=== PATIENT | female | born 1990 | race Caucasian/White ===

== ENCOUNTER 2023-04-23 10:57 | Outpatient (CLI) | payer OTHER, SELFPAY ==
--- NOTE | 2023-04-23 11:00 | CRLHL7_ITS ---
For Patients: As a result of the Century Cures Act, medical imaging exams and procedure reports are released immediately into your electronic medical record. You may view this report before your referring provider. If you have questions, please contact your health care provider. INDICATION: Evaluate anatomy. COMPARISON: none TECHNIQUE: Real time lopez scale imaging of the fetus was performed as well as color Doppler analysis of the umbilical vessels. FINDINGS: Sonographic imaging demonstrates a single living intrauterine gestation. Fetus demonstrates a regular cardiac rate of 137 beats per minute. Fetus has a vertex position. The placenta lies anteriorly without evidence of placenta previa. The edge of the placenta is located 6.2 cm from the internal cervical os. Amniotic fluid volume appears normal. Single deepest vertical pocket: 5.6 cm. The cervix is closed and measures 4.5 cm in length. The composite ultrasound gestational age is calculated at 20 weeks 5 days with an estimated sonographic due date of 09/05/2023. The estimated weight is 373 grams which lies at the 84th %. The following biometric measurements were obtained: Biparietal diameter: 4.9 cm/20 weeks 6 days 81st% Head circumference: 17.9 cm/20 weeks 2 days 58th% Abdominal circumference: 16.1 cm/21 weeks 1 day 81st% Femur length: 3.3 cm/20 weeks 2 days 52nd% The HC/AC ratio measures: 1.11 range (1.06-1.25) On anatomic survey, there is a normal appearance of the cerebral ventricles, cavum septi pellucidi, cisterna magna and cerebellum. The nose, lips, and facial profile appear normal. The cervical, thoracic and lumbar spine are well visualized and appear normal. There is a normal four-chamber heart view and the left and right ventricular outflow tracts appear normal. The diaphragm and stomach appear normal. The kidneys and bladder also appear normal. There is a normal three-vessel cord and there is an eccentric cord insertion site. The four extremities appear normal. IMPRESSION: Normal OB ultrasound exam with concordance of clinical and sonographic dating. No intrinsic abnormalities noted on anatomic survey. Dictated by Kailash Gonsales MD @ 04/23/2023 12:21:04 PM (Electronically Signed)
== END 2023-04-23 10:58 | disposition home or self-care (01) ==
PROVIDERS: Visit Provider Advanced Practice Midwife
DX: Z34.92 Encounter for supervision of normal pregnancy, unspecified, second trimester (principal); Z3A.20 20 weeks gestation of pregnancy
CPT/HCPCS: 76805

== ENCOUNTER 2023-06-18 10:35 | Outpatient (CLI) | payer OTHER, SELFPAY | END 2023-06-18 10:36 | disposition home or self-care (01) | LOC: NFLDREF 06-21 15:41 | PROVIDERS: Visit Provider Advanced Practice Midwife | DX: Z34.90 Encounter for supervision of normal pregnancy, unspecified, unspecified trimester (principal) | CPT/HCPCS: 86592 ==

== ENCOUNTER 2023-08-13 08:53 | Outpatient (CLI) | payer OTHER, SELFPAY ==
[2023-08-14 14:40] LABS: Strep B DNA Probe Negative (Negative); Strep B Susceptibility Needed? No
== END 2023-08-13 08:54 | disposition home or self-care (01) ==
PROVIDERS: Visit Provider Advanced Practice Midwife
DX: Z34.90 Encounter for supervision of normal pregnancy, unspecified, unspecified trimester (principal)
CPT/HCPCS: 87081; 87653

== ENCOUNTER 2023-09-07 11:33 | Inpatient (IN) | payer OTHER, SELFPAY ==
[2023-09-07] VITALS (14 sets, daily range): BP systolic 101–126; BP diastolic 48–69; PULSE 69–113; RESP 16–17; TEMP 36.7–37.4; O2SAT 96–100; BMI 32.4
[2023-09-07] MEDS: OXYTOCIN 10 UNIT/ML INJ IM (12:01)
[2023-09-07 12:34] LABS: Basophils Percent Auto 0.1 % (0.0-3.0); Hematocrit 40.6 % (33.0-51.0); Hemoglobin* 13.7 gm/dL (12.0-16.0); Immature Granulocytes Pct Auto 0.3 %; Mean Corpuscular HGB Conc 34 gm/dL (32-36); Mean Corpuscular Hemoglobin 31 pg (26-34); Mean Corpuscular Volume 91 fL (80-100); Monocytes Percent Auto 3.5 % (0.0-11.0); Neutrophils Percent Auto 91.1 % (42.0-72.0); Platelet Count* 217 K/uL (140-440); RDW Coefficient of Variation % 12.7 % (11.5-15.5); Red Blood Count 4.47 m/uL (4.00-5.20); White Blood Count* 20.83 K/uL (4.50-11.00)
[2023-09-07 12:37] LABS: Slide Review Reflex No
--- NOTE | 2023-09-07 13:00 | P.LDBA_ITS ---
Subjective History of Present Illness Date Seen: 09/07/23 Specific Issues/Plans Its a girl! Tx at 18 weeks from from [facility] in [place] H&P done by ENRRIQUE Webb on 08/20/2023 1. Rubella NON immune, needs vaccine PP 2. Hx of partial molar , needed 2 D & C's Taking oral progesterone and vaginal progesterone, managed by Fertility specialist in [place]: Stopped at 35 weeks Asked about dosing, records only say 100 mg vaginal progesterone daily. Stopped at 35 weeks. Send placenta to pathology 3. Hx of endometriosis COVID: declines, would not like to get this vaccine FLU: declines TDAP: declines 32wk Mental Health: completed Medical Records: Pap: 04/04/22, NIL (no HPV included, last HPV was 2019). Labs: 02/05/23: O+, ab screen neg, hgb 13.5, platelets 272, rubella NON immune, Hep B neg, HIV neg, Hep C neg. UDS neg. UC mixed lamont NOB done 02/05/23 at 9 weeks. LMP 12/04/22. Dating u/s 01/22/23: by LMP 7.0, by u/s 7.1 Comments: Sara is being admitted to Labor and Delivery for imminent delivery. She is a 32 year old G 3 P 1011 at?39.4 weeks gestation. Her full history and physical was dictated by Lauren James on 08/20/23. Please see this for details. ? She is coping well with labor pain/contractions. Her partner and narrow gauge operator are with her for support. She is planning an unmedicated . She states ctx started around 0100, becoming stronger and more regular around 0900. She has SROM, clear fluid while she was driving here. Arrived complete with a strong urge to push per RNs. OB - Problem Based A/P Additional Plan (1) Uterine contractions: Status: Acute Plan Assessment:?? at 39.4 weeks gestation?? GBS neg Patient is coping well with challenges of labor.?? Labor type: Spontaneous, delivery imminent complicated by: -Rubella non immune -hx of partial molar -hx of endometriosis ? Plan:?? * Admit to L & D? * IV access: not needed at this time * Monitoring:continuous * Candidate for analgesia of choice.? Planning nonpharmacologic methods for pain management * Anticipate progress to NVD Delivery/Labor/Induction Plan Plan: expectant management OB Exam Physical Exam Vital signs: Pulse BP Pulse Ox 91 122/61 100 09/07/23 12:57 09/07/23 12:57 09/07/23 11:43 Narrative: VSS, afebrile? General Appearance:? Calm, cooperative.? No acute distress.? Normal affect.? Psychiatric Exam: Alert and oriented, appropriate affect? HEENT: normocephalic, neck supple, full ROM? Respiratory:? Symmetrical chest wall movement.? Normal respiratory effort.? Abdomen: Gravid, non tender? Extremities:? normal and trace edema? Skin: warm, dry.??? Ctx:? Q min apart.? ? ? Strong? FHTs:? Baseline: 135.? Variability: min.?? Accels: none.??? Decels:? variable decels with ctx/pushing.? SVE: complete, crown noted w/ pushing? Membranes: ? SROM,? clear fluid Detailed Labor and Delivery Exam Patient Gravid: Yes
--- NOTE | 2023-09-07 13:01 | W.PM.OBVAGDE ---
OB Procedure Vag Delivery Mother Details Mother Details: The patient is a 32 year-old, 3, Para 2, admitted on 09/07/23 at 39.4 Days gestation. : 3 Para: 2 Weeks Gestation: 39.4 Admission Date: 09/07/23 Additional Details Amniotic Membrane Status: SROM Amniotic Membrane Rupture Date: 09/07/23 Amniotic Membrane Rupture Time: 11:24 Amniotic Membrane Fluid Description: Clear Analgesia/Anesthesia Type: None (spinal given after for D & C for retained membranes) Waterbirth: No Pitcoin: No (Given after for increased bleeding after placenta) Intrapartal Events: None Labor Onset: 09:00 Complete: 11:38 (assumed w/ pushing) Pushin:38 Heart: heart tones during second stage: variable decels w/ ctx/. Delivery Details Delivery Date: 09/07/23 Delivery Time: 11:48 Route of delivery: Infant Gender: Female Infant Viability: Alive; Heart Rate Present Position at Delivery: OA Delivery Details: Arrived to room and pt semifowlers, pushing in good control. [place] noted w/ pushing. As crown become larger, FHTs noted in the 60s. Pt encouraged to push w. next ctx, and gentle perineal massage done. delivered with the next ctx. ? Spontaneous vaginal?delivery?at 1148 of?a viable? female .??Delivered in vertex OA position.??Nuchal cord noted, but unable to reduce - still under the membranes and night. Somersaulted out and reduced after delivery. Shoulders delivered easily.? Cry noted with stimulation.?? placed on maternal abdomen.??Cord?was clamped and cut after a 5+ minute delay.??Nose and mouth were bulb suctioned.? Shoulder dystocia: no? Nuchal cord: yes? Meconium stained?fluid: no? Water : no? ? ? 8 at 1 minute and 9 at 5 minutes.? ? Sara noted increased pressure vaginally and the cord was noted to no longer be pulsing. Placenta delivered spontaneously and easily?at 1154 with a?3 vessel?cord.??Trailing membranes easily teased out. Pitocin recommended for slight increased bleeding noted after placenta delivered. During assessment for repair, large amount of membranes noted coming from the cervix. Teased out, but did not feel complete. Assessment of placenta revealed only 1-2 inches of membranes around the edge. Dr. Phelan and OR team called for D & C. Bleeding remained stable and The fundas was firm to palpation.?. Bimanual exam done while waiting for their arrival. Small amount of clots and shredded membranes also removed. ? Mother and infant were stable after?delivery.? ? Lacerations:? 2nd degree, repaired by Dr. Phelan in the OR. ? Blood loss: 250?mL.?prior to OR, 75 estimated in OR. Blood loss measurement type: QBL? EBL? ? Sponge,?lap?and needles counts are correct.? Mother and infant were stable after?delivery 1 Minute Interval Total Score: 8 5 Minute Interval Total Score: 9 Additional Details Shoulder Dystocia: No Procedure Done: Global Laceration: Perineal - 2nd Degree Sponge/Need Count Correct: Yes Cord Vessel Description: 3 Vessels and Nuchal Cord Event Summary Status: Mother and were stable after delivery. Disposition: floor
--- NOTE | 2023-09-07 13:04 | PM.OBCN1 ---
OB - CN: HPI Date of Consult Time Seen by Provider: 12:54 Date Seen: 09/07/23 Patient: [facility] Patient Consult date: 09/07/23 Requesting Physician: Elodia Dunbar CNM Primary Care Provider: Not a Local Provider Consult Narrative Reason for consult: retained placenta (suspected retained membranes) Narrative: The patient is a 32 year old G 3 now P 2011 that was admitted to the Center on 09/07/23 for labor. She proceeded to an unmedicated normal spontaneous vaginal delivery at 11:48 am. The placenta delivered at 11:54 am. The placenta was inspected and was found to be missing membranes. Elodia performed a bimanual exam and removed clots and jagged fragments of membranes, though she believes that more are still within the uterus. Bleeding had been a slow consistent trickle. QBL for the delivery was 250 mL. 1. Rubella NON immune, needs vaccine PP 2. Hx of partial molar , needed 2 D & C's Taking oral progesterone and vaginal progesterone, managed by Fertility specialist in [place]: Stopped at 35 weeks Asked about dosing, records only say 100 mg vaginal progesterone daily. Stopped at 35 weeks. Send placenta to pathology 3. Hx of endometriosis COVID: declines, would not like to get this vaccine FLU: declines TDAP: declines 32wk Mental Health: completed Medical Records: Pap: 04/04/22, NIL (no HPV included, last HPV was 2020). Labs: 02/05/23: O+, ab screen neg, hgb 13.5, platelets 272, rubella NON immune, Hep B neg, HIV neg, Hep C neg. UDS neg. UC mixed lamont NOB done 02/05/23 at 9 weeks. LMP 12/04/22. Dating u/s 01/22/23: by LMP 7.0, by u/s 7.1 History History 3 Elective abortions 0 Para 2 Spontaneous abortions 1 Hx # Term Pregnancies 1 Ectopic pregnancies Hx # Pregnancies 0 Multiple births Number of Living Children 1 Past Pregnancies Del. 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 ? Education: bachelors? ? 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 ? Partner: Nagi? ? Lives with: Nagi, son? ? Pets: denies? ? Abuse: Denies past. Safe at home with current partner ? ? Special Diet: Denies? ? Ok with a blood transfusion: yes? ? Culture or jew beliefs: Cheondoism ? RISK FACTORS? ? Exercise Times/wk: walking 3 times a week, barre once a week. ? ? Depression/Anxiety: denies? ? Previous Treatments NA Therapy NA Seat Belt Use: Routinely ? Smoking: Denies past/present? ? Alcohol/day: Denies while ? ? Caffeine: 1 pop a few times a week? ? Drug Use: Denies past/present? ? What is your current living situation?: I presently have a place to live Problems where you live: no known problems In the past 12 months, utilities in danger of being shut off: no In past 12 months, lack of transportation kept you from medical appts, meetings, work, or getting things needed for daily living: no In the past 12 mos, have been you worried that your food would run out before you had money to buy more?: never true In the past 12 mos, the food you bought just didn't last and you didn't have money to buy more?: never true How often does anyone, including family, friends and others, physically hurt you: never How often does anyone, including family, friends and others, insult or talk down to you: never How often does anyone, including family, friends and others, threaten you with harm: never How often does anyone, including family, friends and others, scream or curse at you: never Little interest or pleasure in doing things: not at all Feeling down, depressed, or hopeless: not at all Meds Home Medications and Allergies Home Medications Medication Instructions Recorded Confirmed Type docosahexaenoic acid 200 mg mg PO 04/23/23 09/03/23 History capsule ( DHA) Saccharomyces boulardii 250 mg 250 mg PO BID 05/21/23 09/03/23 History capsule (Daily Probiotic (S. boulardii)) cholecalciferol (vitamin D3) 25 25 mcg PO QDAY 07/30/23 09/03/23 History mcg (1,000 unit) capsule magnesium 250 mg tablet 250 mg PO QDAY 07/30/23 09/03/23 History Allergies Allergy/AdvReac Type Severity Reaction Status Date / Time Penicillins Allergy Mild Rash Verified 09/03/23 08:38 OB - H&P: Exam Physical Exam: Vital signs: Pulse BP Pulse Ox 91 122/61 100 09/07/23 12:57 09/07/23 12:57 09/07/23 11:43 Constitutional: Constitutional: no acute distress and cooperative Routine HEENT Exam: Head: Present atraumatic Routine Exam: Comments: Laceration on the perineum involving right labia majora. Slow trickle noted. Fundus firm. Detailed Labor and Delivery Exam: Patient Gravid: No Routine Extremities Exam: Extremities: Present normal inspection OB - Results Labs Labs: Short CBC 09/07/23 Range/Units 12:12 WBC 20.83 H (4.50-11.00) K/uL Hgb 13.7 (12.0-16.0) gm/dL Hct 40.6 (33.0-51.0) % Plt Count 217 (140-440) K/uL OB - CN: A/P Assessment and Plan (1) Retained uterine membrane without hemorrhage: Status: Acute Plan Would recommend moving to operating room for examination under anesthesia, uterine curettage (suction or gentle sharp as indicated) and labial/perineal repair. Operating room staff and anesthesia notified, informed consent for the procedures obtained.
[2023-09-07] MEDS: ACETAMINOPHEN 500 MG TABLET 1000 MG PO ×2 (13:10→23:50)
[2023-09-07] MEDS: CEFAZOLIN 2 GM INJ IVP (13:15)
[2023-09-07] MEDS: KETOROLAC 30 MG/ML inj IVP (13:38)
--- NOTE | 2023-09-07 13:43 | P.ANES_ITS ---
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
--- NOTE | 2023-09-07 14:01 | PM.PROC ---
Procedure Note Date Seen: 09/07/23 Date of procedure: 09/07/23 Will [facility] bill your pro fee for this procedure?: Yes Pre-op diagnosis: 1. Status post vaginal delivery, 2. Retained amniotic membranes Post-op diagnosis: same (Plus vaginal inclusion cyst) Procedure: 1. Examination under anesthesia 2. Uterine curettage 3. Repair of second-degree perineal/labial laceration 4. Removal of vaginal inclusion cyst Procedure Description: After obtaining informed consent, the patient was taken to the operating room where spinal anesthesia was obtained without difficulty and she received monitored anesthesia care. She was prepared and draped in the normal, sterile fashion in the dorsal lithotomy position. 2 g of IV Ancef was administered intravenously. An examination was performed under anesthesia which demonstrated an enlarged uterus. Digitally, I was able to explore the uterine cavity and felt membranes. I was able to tease some of the membranes out using a combination of my fingers and a ring forceps. An open-sided bivalve speculum was placed into the vagina and the cervix visualized. The anterior lip of the cervix was grasped with a ring forceps for traction. A 14 mm rigid, curved suction cannula was advanced through the cervical os into the uterine cavity. Gentle suction was applied, and the uterine lining gently curetted. A small amount of products of conception/membranes and clot were removed. The suction cannula was removed. The uterine lining was gently explored using a sharp Banjo curette, and a gritty feel was felt throughout. The ring forceps and speculum were removed. Examination of the vagina demonstrated a 0.5 cm benign-appearing inclusion cyst at the apex of the tear. The cyst was grasped with a ring forceps and gently bluntly dissected from the vaginal tissues and passed from the field. The perineal laceration was repaired in normal sterile, layered fashion using a 3-[address] suture [address] a [address]-1 needle. All instruments were then removed. The patient tolerated the procedure well. Sponge, lap, and needle counts were reported as correct x2. The patient was taken to the recovery room awake and in stable condition. She received 30 mg of IV Toradol at the conclusion of the procedure. Anesthesia: spinal (with light MAC) Surgeon: Norma Phelan MD Estimated blood loss (mL): 75 Pathology: specimen obtained, sent to pathology (1. Retained membranes, 2. Vaginal inclusion cyst ) Condition: stable Disposition: floor
[2023-09-08] MEDS: IBUPROFEN 600 MG TABLET PO ×2 (03:09→16:23)
[2023-09-08 03:10] VITALS: BP 96/53; PULSE 60; RESP 18; TEMP 36.7; O2SAT 97
[2023-09-08 06:54] LABS: Hemoglobin* 11.7 gm/dL (12.0-16.0)
[2023-09-08 09:00] VITALS: BP 116/77; PULSE 85; RESP 16; TEMP 36.6; O2SAT 96
--- NOTE | 2023-09-08 13:01 | PM.OBPNVD1 ---
OB - PN:Subj Subjective Date Seen: 09/08/23 Patient comments OB post-: no complaints, pain well controlled, tolerating diet and flatus present [place] status: and doing well [place] feeding status: exclusively Narrative: The patient feels well.? The pain is well controlled with current medications.? She has no new complaints.? Urinary output is adequate and she is voiding without difficulty.? Has a good appetite, is tolerating a general diet, is passing flatus, and has not had a bowel movement.? Has scant amount of rubra lochia and denies clots.? She is ambulating well. A few hours after initially rounding on Sara the RN called with reports of the patient passing tissue. She denies any increases in bleeding before or since that time. On inspection the tissue passed did look similar to placental membranes. I did review warning signs of retained POC including bleeding precautions and infection. She denies other concerns at this time.?She did initially desire discharge today but after shared decision making it was decided that she stay until tomorrow for bleeding observation, help, and to observe her baby for jaundice since her last child required phototherapy. OB - PN: Obj Exam Physical Exam: Vital signs: Temp Pulse Resp BP Pulse Ox O2 Del Method 98 F 85 16 116/77 96 Room Air 09/08/23 09:00 09/08/23 09:00 09/08/23 09:00 09/08/23 09:00 09/08/23 09:00 09/08/23 09:00 Narrative: GENERAL APPEARANCE:? normal affect, alert, no distress? MOOD:? appropriate? CHEST:? clear to auscultation and percussion? HEART:? regular rate and rhythm? ABDOMEN:? soft, non-tender the uterine fundus is U/2 and is appropriate for the stage of recovery.? PERINEUM:? mild edema of the perineum, there is a 2nd that is healing well.? EXTREMITIES:? normal and no edema? Urinary Catheter Management: Straight: Cath placed during this visit: yes Urethral indwelling: No Insertion date: 09/07/23 Insertion time: 13:28 OB - PN: Obj Data Labs Labs: Laboratory Results - last 24 hr 09/07/23 09/08/23 12:12 06:37 Hgb 11.7 L Blood Type O Positive Antibody Screen NEGATIVE OB - PN: A/P Delivery Assessment and Plan (1) Retained uterine membrane without hemorrhage: Status: Acute (2) Lactating mother: Status: Acute (3) care following vaginal delivery: Status: Acute Plan day: 1 Plan: routine care Comments: Anticipate discharge tomorrow.
[2023-09-08 15:59] VITALS: BP 101/67; PULSE 73; RESP 16; TEMP 36.9; O2SAT 97
[2023-09-08] MEDS: ACETAMINOPHEN 500 MG TABLET 1000 MG PO (18:15)
[2023-09-09 01:03] VITALS: BP 123/77; PULSE 73; RESP 16; TEMP 36.7; O2SAT 99
[2023-09-09 08:03] VITALS: BP 105/60; PULSE 80; RESP 16; TEMP 36.4; O2SAT 97
[2023-09-09] MEDS: IBUPROFEN 600 MG TABLET PO (11:53)
--- NOTE | 2023-09-09 12:24 | P.DS_ITS ---
DS: Providers Provider Time Seen by Provider: 12:24 Date Seen: 09/09/23 Date of admission: 09/07/23 11:33 Primary care physician: Not a Local Provider Admitting Clinician: Elodia Dunbar CNM Attending Physician on discharge: Elodia Dunbar CNM Date of Discharge: 09/09/23 DS: Diagnosis Discharge Diagnosis (1) care following vaginal delivery: Status: Acute (2) Lactating mother: Status: Acute (3) Retained uterine membrane without hemorrhage: Status: Acute (4) S/P dilation and curettage: Status: Acute Exam Narrative: Exam Narrative: VSS, afebrile GENERAL APPEARANCE: ?normal affect, alert, no distress MOOD: ?appropriate HEENT: normocephalic, neck supple, full ROM CHEST: ?Symmetrical chest wall movement. ?Normal respiratory effort. ?Clear to auscultation HEART: ?regular rate and rhythm ABDOMEN: ?soft, non-tender. Uterine fundus is firm, 2 below Umbilicus, Midline and is appropriate for the stage of recovery. ?Bowel sounds present. PERINEUM: ?mild edema of the perineum, there is a 2nd degree laceration that is healing well. EXTREMITIES: ?normal and no edema Const: Vital Signs, click to edit/add: Vital Signs - 24 hr 09/08/23 15:59 09/09/23 01:03 09/09/23 08:03 Temperature 98.5 F 98.0 F 97.6 F Pulse Rate [Pulse Oximeter] 73 73 80 Respiratory Rate 16 16 16 Blood Pressure [Ri ght Arm] 101/67 123/77 105/60 Pulse Oximetry 97 99 97 Oxygen Delivery Me thod Room Air Room Air Room Air Documenting provider has reviewed patient's vital signs: yes OB - DS: Summary Hospital Course Hospital Course: Sara is a 32 y.o. G 3 P 2 who was admitted to L & D for labor. ?She had an NVD complicated by retained membranes w/o hemorrhage. D & C done. The patient feels well. ?The pain is well controlled with current medications. ?She has no new complaints. ?She is breast feeding and reports things are going well.? the patient has done well.? Vitals have been stable.? She has remained afebrile.? Has a good appetite, is tolerating a general diet. ?She is voiding without difficulty.? She is passing gas and has not had a bowel movement.? She is ambulating and denies any dizziness.? Has Small amount of rubra lochia. She is planning NFP for prevention. Problems: none plan: Discharge home with baby. Follow up in 2 weeks and 6 weeks. , may follow up with if needed Peripartum Data Infant delivery method: Vaginal Laceration description: Perineal - 2nd Degree Procedures: Procedures Operation Date: 09/07/23 13:10 Actual Procedure Side Surgeon p Suction Dilatation & Curettage, Perineal Tear Repair, Exam Under Anesthesia, Removal of Vaginal Inclusion Cyst Norma Phelan MD complications: retained placenta Gender: Female Discharge Plan: Home Status at Discharge Functional status at discharge: independent ambulation Overall status at discharge: patient is progressing back to baseline Time Spent with Patient Time attestation: Total time spent providing and/or coordinating discharge services: Time spent: Less than 30 minutes Discharge Plan Discharge Disposition: Home, Self-Care Date of Admission: 09/07/23 11:33 Attending Provider on Discharge: Elodia Dunbar Primary Care Provider: Provider,Not a Local Condition: Stable Anticipated Discharge Date/Time: 09/09/23 13:00 Discharge Medications: New ibuprofen 600 mg Tablet 600 mg PO Q6H PRNQty: 60 0RF Continued Saccharomyces boulardii [Daily Probiotic (S. boulardii)] 250 mg capsule 250 mg PO BID DHA 200 mg capsule 200 mg PO DAILY PRN magnesium 250 mg tablet 250 mg PO QDAY cholecalciferol (vitamin D3) 25 mcg (1,000 unit) capsule 25 mcg PO QDAY Discharge Orders: Discharge Order (Routine); Ordered 09/09/23 Ordered By: Elodia Dunbar Patient Education: Deep Sedation (DC), Dilation and Curettage (DC), OB Over the Counter Medication Information, OB Vagin al/Breast Feeding Additional Instructions: Follow up in 2 weeks and 6 weeks. Nothing in the vagina (no tampons, intercourse, etc) for 6 weeks Call if bleeding becomes heavy or you have signs of an infection, including but not limited to bad odor, tender abdomen, fever, chills. Activity Level: Activity as Tolerated Discharge Diet: Regular Follow Up Appointments: Provider,Not a Local [Primary Care Provider] - [facility] Instructions
== END 2023-09-09 12:58 | disposition home or self-care (01) | DRG 798 ==
PROVIDERS: Obstetrics & Gynecology; Admitting Provider Advanced Practice Midwife; Visit Provider Advanced Practice Midwife
DX: O73.1 Retained portions of placenta and membranes, without hemorrhage (principal); Z37.0 Single live birth; Z3A.39 39 weeks gestation of pregnancy; O70.1 Second degree perineal laceration during delivery; O99.892 Other specified diseases and conditions complicating childbirth; N90.7 Vulvar cyst; Z87.42 Personal history of other diseases of the female genital tract
CPT/HCPCS: 01965; 36415; 85018; 85025; 86850; 86900; 86901; 88304; 88305; 88307; 99140; A9270; J0690; J1100; J1885; J2250; J2405; J2590

== ENCOUNTER 2023-10-29 13:52 | Outpatient (CLI) | payer OTHER, SELFPAY ==
--- OUTSIDE RECORDS SUMMARY | 2023-10-29 13:58 | XMS_ITS | Encounter Summary ---
Author Name Unknown Organization [facility] Address [address] [place], [place] [address] [place] [address] Care Team Providers Care Complaint Clerk Name Role Phone Needs Pcp, Assignment Primary Care Provider [phone] Reason for Visit * Procedure/Equipment (Routine) - Incomplete Specialty Diagnoses / Procedures Referred By Contjerilyn t Referred To Contact Diagnoses History of molar Procedures US OB <14 Weeks W EV Single Kailash Porras MD [address] [facility] [place] [address] [place] [address] Referral ID Status Reason Start Date Expiration Date V isits Requested Visits Authorized [id number] Incomplete 01/21/2023 04/21/2024 1 1 Encounter Details Date Type Department Care Team Description 01/22/2023 12:30 PM CDT Ancillary Procedure [place] [address] [facility] [place], [place] [address] Kailash Porras MD [facility]5 [facility] [place] [address] [place], [place] [address] History of molar Social History Tobacco Use Types Packs/Day Years Used Date Smoking Tobacco: Never Smokeless Tobacco: Never Alcohol Use Standard Drinks/Week Comments Not Currently 0 (1 standard drink = 0.6 oz pur e alcohol) Comments Yes Sex and Gender Information Value Date Recorded Sex Assigned at Not on file Gender Identity Not on file Sexual Orientation Not on file documented as of this encounter Plan of Treatment Not on file documented as of this encounter Procedures Procedure Name Priority Date/Time Associated Diagnosis Comments US OB <14 WEEKS W EV SINGLE Routine 01/22/2023 12:57 PM CDT History of molar documented in this encounter Results * US OB <14 Weeks W EV Single (01/22/2023 12:57 PM CDT) Anatomical Region Laterality Modality Pelvis Ultrasound 01/22/2023 12:2 4 PM CDT Impressions 01/22/2023 2:19 PM CDT COMPARISON: None TECHNIQUE: ??Transabdominal and transvaginal imaging was performed. ?? FINDINGS: Gestational sac: Unremarkable. There is a 1.5 x 0.8 x 0.4 cm hypoechoic nonvascular fluid collection adjacent to the gestational sac, likely a small subchorionic hemorrhage/implantation bleed. [place]-rump length measures 1.0 cm, corresponding to 7w1d gestational age. ?? RACHEL 09/09/2023. ?? Embryonic/ cardiac activity is identified with heart rate 163 bpm. ?? Right Ovary: Measures 3.8 x 2.4 x 2.2 cm and appears unremarkable. Left Ovary: Measures 4.6 x 2.8 x 2.5 cm and contains a 1.9 cm relatively echogenic lesion, likely a corpus luteum or possibly a dermoid. No suspicious adnexal masses. Free Fluid: Trace simple-appearing free fluid. GA by LMP:: ??7w0d GA by Prior US: ??N/A GA by today's US: ??7w1d RACHEL by today's US: 09/09/2023 IMPRESSION: 1. Single live intrauterine with an estimated gestational age of 7 weeks 1 day. A very small subchorionic hemorrhage/implantation bleed. 2. Left ovarian 1.9 cm relatively echogenic lesion, likely a corpus luteum or possibly a dermoid. Attention at follow-up. Narrative Procedure Note Nat Camp MD - 01/22/2023 IMPRESSION COMPARISON: None TECHNIQUE: Transabdominal and transvaginal imaging was performed. FINDINGS: Gestational sac: Unremarkable. There is a 1.5 x 0.8 x 0.4 cm hypoechoicnonvascular fluid collection adjacent to the gestational sac, likely asmall subchorionic hemorrhage/implantation bleed. [place]-rump length measures 1.0 cm, corresponding to 7w1d gestational age. RACHEL 09/09/2023. Embryonic/ cardiac activity is identified with heart rate 163 bpm. Right Ovary: Measures 3.8 x 2.4 x 2.2 cm and appears unremarkable. Left Ovary: Measures 4.6 x 2.8 x 2.5 cm and contains a 1.9 cm relativelyechogenic lesion, likely a corpus luteum or possibly a dermoid. No suspicious adnexal masses. Free Fluid: Trace simple-appearing free fluid. GA by LMP:: 7w0d GA by Prior US: N/A GA by today's US: 7w1d RACHEL by today's US: 09/09/2023 IMPRESSION: 1. Single live intrauterine with an estimated gestational age of7 weeks 1 day. A very small subchorionic hemorrhage/implantation bleed. 2. Left ovarian 1.9 cm relatively echogenic lesion, likely a corpus luteumor possibly a dermoid. Attention at follow-up. Kailash Porras MD [facility] documented in this encounter Visit Diagnoses Diagnosis History of molar documented in this encounter Care Teams Complaint Clerk Relationship Specialty Start Date End Date Needs Pcp, [place] [address] PCP - General 01/07/23 documented as of this encounter
--- OUTSIDE RECORDS SUMMARY | 2023-10-29 13:58 | XMS_ITS | Encounter Summary ---
Author Name Unknown Organization [facility] Address [address] [place] [address] Care Team Providers Care Program Attendant Name Role Phone Needs Pcp, Assignment Primary Care Provider [phone] Reason for Visit * Reason Comments Routine Visit Encounter Details Date Type Department Care Team Description 03/26/2023 11:10 AM CDT Routine [place] [id number] Obstetrics/Gynecolo 1515 [facility]. [place], [place] [id number] Kailash Porras MD 1515 [facility] [place] [address] [place], [place] [id number] Routine Visit Social History Tobacco Use Types Packs/Day Years Used Date Smoking Tobacco: Never Smokeless Tobacco: Never Alcohol Use Standard Drinks/Week Comments Not Currently 0 (1 standard drink = 0.6 oz pur e alcohol) Depression Answer Date Recor ded Last EPDS Total Score 1 02/05/2023 Last EPDS Self Harm Result 0-->never 02/05 Comments Yes Sex and Gender Information Value Date Recorded Sex Assigned at Not on file Gender Identity Not on file Sexual Orientation Not on file documented as of this encounter Last Filed Vital Signs Vital Sign Reading Time Taken Comments Blood Pressure 114/62 03/26/2023 11:14 AM CDT Pulse - - Temperature - - Respiratory Rate - - Oxygen Saturation - - Inhaled Oxygen Concentration - - Weight 76.2 kg (168 lb) 03/26/2023 11:14 AM CDT Height - - Body Mass Index 28.84 02/05/2023 1:06 PM CDT documented in this encounter Patient Instructions * Patient Instructions* Kailash Porras MD - 03/26/2023 11:10 AM CDT Images from the original note were not included. Thank you for choosing us for your care. We recommend you review the following information in Your Guide to : Genetic Testing Testing Possible Complications Schedule your ultrasound now if you have not already scheduled it. Your ultrasound should be completed at 20 weeks of . Drinking any amount of alcohol during is not safe. Watch this short video by [employer] [place]: Proof: Some Think Drinking During is OK. It???s Not. - Nahed video Marijuana use is never recommended while or . Learn why here: https://Photetica/62716.pdf is a time of transition. If you feel overwhelmed, anxious or depressed, see the followingresources: Emotional Distress During and After : https://Photetica/15632.pdf Resources & Support for New & Expecting Parents: https://Photetica/57432.pdf The 3 books provided throughout are also available digitally. Here are links to each book: Your Guide to : https://user-TVplus.So1.Gauzy/KsbdrcHaepcaiq-Luxk-Glrmy-xa-b-Efmjakr- Preparing for Childbirth: https://user-TVplus.So1.bz/LmmokrUfsehkif-Tij-Gjqg-of-Motherhood Taking Care of You and Your : https://user-TVplus.So1.bz/FwmolsTkjwdvud-F-Xuk-Beginning [place] for our free carolyn called ???myHealthyPregnancy?? powered by [employer]. The carolyn offers many quick articles and videos on , labor, , , and newborncare. Find instructions here: Or click on this link: myHealthyPregnancy tracker carolyn [facility] documented in this encounter Progress Notes * Kailash Porras MD - 03/26/2023 11:10 AM CDT Visit 16w0d No complaints. Quad screen declined. Schedule ultrasound. documented in this encounter Plan of Treatment Not on file documented as of this encounter Visit Diagnoses Diagnosis Encounter for supervision of other normal in second trimester- Primary documented in this encounter Care Teams Program Attendant Relationship Specialty Start Date End Date Needs Pcp, [place] [address] PCP - General 01/07/23 documented as of this encounter
--- OUTSIDE RECORDS SUMMARY | 2023-10-29 13:58 | XMS_ITS | Encounter Summary ---
Author Name Unknown Organization [facility] Address [address] [place] [address] Care Team Providers Care Transport Truck Driver Name Role Phone Unavailable Primary Care Provider Unavailabl e Encounter Details Date Type Department Care Team (Latest Contact Info) Description 02/05/2023 Travel Social History Tobacco Use Types Packs/Day Years Used Date Smoking Tobacco: Never Assessed Estimated Date of Delivery Comme nts Yes 09/10/2023 Sex and Gender Information Value Date Recorded Sex Assigned at Not on file Gender Identity Not on file Sexual Orientation Not on file COVID-19 Exposure Response Date Recorded In the last 10 days, have yo u been in contact with someone who was confirmed or suspected to have Coronavirus/COVID-19? No / Unsure 02/05/2023 11:09 PM CDT documented as of this encounter Plan of Treatment Not on file documented as of this encounter Visit Diagnoses Not on filedocumented in this encounter Additional Health Concerns Infection Onset Date Last Indicated Resolved Time Rule Out COVID-19 02/05/2023 02/05/2023 02/06/2023 12:33 AM CDT documented as of this encounter
--- OUTSIDE RECORDS SUMMARY | 2023-10-29 13:58 | XMS_ITS | Encounter Summary ---
Author Name Unknown Organization [facility] Address [address] [place] [address] Care Team Providers Care Roll Grinder Operator Name Role Phone Needs Pcp, Assignment Primary Care Provider [phone] Reason for Visit * Reason Comments Follow-up Ultrasound Encounter Details Date Type Department Care Team Description 01/22/2023 1:30 PM CDT Office Visit [place] [id number] Obstetrics/Gynecolog y 1515 [facility]. [place], [place] [phone] Kailash Porras MD 1515 [facility] [place] [address] [place], [place] [phone] History of molar (Primary Dx) Social History Tobacco Use Types Packs/Day Years [...] Sign Reading Time Taken Comments Blood Pressure 123/64 01/22/2023 1:09 PM CDT Pulse - - Temperature - - Respiratory Rate - - Oxygen Saturation - - Inhaled Oxygen Concentration - - Weight 70.8 kg (156 lb) 01/22/2023 1:09 PM CDT Height - - Body Mass Index - - documented in this encounter Progress Notes * Kailash Porras MD - 01/22/2023 1:30 PM CDT SUBJECTIVE: 32 y.o. , Patient's last menstrual period was 12/04/2022., here for follow-up ofearly . Please see my note from 01/07/2023 for details of her previous evaluation. She hasno new complaints at this time. An ultrasound was done today. Outpatient Medications Marked as Taking for the 01/22/23 encounter (Office Visit) with Kailash Porras MD Medication Sig Acetylcysteine (NAC OR) MAGNESIUM OR MV-Min-Fe Fum-FA-DHA ( 1 OR) progesterone (PROMETRIUM) 100 MG capsule Insert vaginally. Pyridoxine HCl (B-6 OR) VITAMIN D OR Allergies Allergen Reactions Penicillins Rash OBJECTIVE: Filed Vitals: 01/22/23 1309 BP: 123/64 Weight: 156 lb (70.8 kg) OB ultrasound images and the technologist work sheet from today's ultrasound were reviewed. The final report is not yet available. A single, viable intrauterine was noted, measuring 7 weeks1 day EGA, consistent with menstrual dating. A small possible subchorionic hemorrhage was noted. ASSESSMENT: with history of a molar . The patient does have a normal, viable on ultrasound today. PLAN: She will return in 2 to 3 weeks for a follow-up ultrasound and initial visit. She will notify me sooner if she has any questions or concerns. documented in this encounter Plan of Treatment Not on file documented as of this encounter Visit Diagnoses Diagnosis History of molar - Primary documented in this encounter Care Teams Roll Grinder Operator Relationship Specialty Start Date End Date Needs Pcp, [place] [address] PCP - General 01/07/23 documented as of this encounter
--- OUTSIDE RECORDS SUMMARY | 2023-10-29 13:58 | XMS_ITS | Clinical Summary ---
Author Name Unknown Organization [facility] Address [address], [place] [address] Care Team Providers Care Heading Maker Name Role Phone Needs Pcp, Assignment Primary Care Provider [phone] Source Comments You are receiving this document as you are listed as the primary care provider,follow-up provider, or the patient has been referred to you for consultation.This is in compliance with the Medicare and[facility] EHR Incentive Program,which states Providers who transition their patient to another setting of careor provider of care or refers their patient to another provider of care shouldprovide summary care record for each transition of care or referral. [facility] Allergies Active Allergy Reactions Criticality Noted Date Comments Penicillins Rash 01/07/2023 Medications Medication Sig Dispensed Refills Start Date End Date Status MV-Min-Fe Fum-FA-DHA ( 1 OR) 0 Active Probiotic Product (SUPER PROBIOTIC OR) 0 Active Active Problems No known active problems Resolved Problems Problem Noted Date Diagnosed Date Resolved Date Encounter for supervision of normal 02/06/20 23 07/09/2023 Family History Medical History Relation Name Comments Cancer Father No Known Problems Mother No Known Problems Brother No Known Problems Maternal Grandfather No Known Problems Maternal Grandmother Cancer Paternal Grandfather Cancer Paternal Grandmother Relation Name Status Comments Father Alive Mother Alive Brother Alive Maternal Grandfather Maternal Grandmother Alive Paternal Grandfather Paternal Grandmother Social History Tobacco Use Types Packs/Day Years Used Date Smoking Tobacco: Never Smokeless Tobacco: Never Tobacco Cessation:Counseling Given: Not Answered Alcohol Use Standard Drinks/Week Comments Not Currently 0 (1 standard drink = 0.6 oz pur e alcohol) Depression Answer Date Recor ded Last EPDS Total Score 1 02/05/2023 Last EPDS Self Harm Result 0-->never 02/05 Sex and Gender Information Value Date Recorded Sex Assigned at Not on file Gender Identity Not on file Sexual Orientation Not on file Last Filed Vital Signs Vital Sign Reading Time Taken Comments Blood Pressure 114/62 03/26/2023 11:14 AM CDT Pulse 90 02/26/2023 11:25 AM CDT Temperature - - Respiratory Rate - - Oxygen Saturation - - Inhaled Oxygen Concentration - - Weight 76.2 kg (168 lb) 03/26/2023 11:14 AM CDT Height 162.6 cm (5' 4) 02/05/2023 1:06 PM CDT Body Mass Index 28.84 02/05/2023 1:06 PM CDT Plan of Treatment Health Maintenance Due Date Last Done Comments Cervical Cancer Screening Due 1989 HepB (1) 1989 COVID-19 Vaccine (#1) 06/12/1990 Adult Preventive Visit 12/11/2007 DTaP/Tdap/Td (1 - Tdap) 2008 Influenza (#1) 2023 Zoster/Shingles (1 of 2) 12/11/2039 HIV Screening (Preventive Services) Completed 02/05/2023 Hep C Screening (Preventive Services) Completed 02/05/2023 HPV Vaccine Aged Out No longer eligi ble based on patient's age to complete this topic HepA Aged Out No longer eligi ble based on patient's age to complete this topic Hib Aged Out No longer eligi ble based on patient's age to complete this topic IPV (Polio) Aged Out No longer eligi ble based on patient's age to complete this topic MCV4 Aged Out No longer eligi ble based on patient's age to complete this topic Pneumococcal Aged Out No longer eligi ble based on patient's age to complete this topic Care Teams Heading Maker Relationship Specialty Start Date End Date Needs Pcp, [place] [address] PCP - General 01/07/23
--- OUTSIDE RECORDS SUMMARY | 2023-10-29 13:58 | XMS_ITS | Encounter Summary ---
Author Name Unknown Organization [facility] Address [address] [place] [address] Care Team Providers Care Log Deckman Name Role Phone Needs Pcp, Assignment Primary Care Provider [phone] Reason for Visit * Reason Comments INITIAL VISIT Encounter Details Date Type Department Care Team Description 02/05/2023 1:20 PM CDT Initial [facility] 1515 Obstetrics/Gynecolo gy 1515 [facility]. [place], [place] [id number] Kailash Porras MD 1515 [facility] [address] [place], [place] [phone] INITIAL VISIT Social History Tobacco Use Types Packs/Day Years [...] Sign Reading Time Taken Comments Blood Pressure 113/62 02/05/2023 1:06 PM CDT Pulse 69 02/05/2023 1:06 PM CDT Temperature - - Respiratory Rate - - Oxygen Saturation - - Inhaled Oxygen Concentration - - Weight 72.6 kg (160 lb) 02/05/2023 1:06 PM CDT Height 162.6 cm (5' 4) 02/05/2023 1:06 PM CDT Body Mass Index 27.46 02/05/2023 1:06 PM CDT documented in this encounter Patient Instructions * Patient Instructions* Kailash Porras MD - 02/05/2023 1:20 PM CDT Thank you for choosing us for your care. We recommend you review the following information in the book you received, ???Your Guide to ?? as well as the additional materials listed below: and Genetic Testing How Your Body Changes Making Good Choices Six Steps to a Healthy How Babies Grow and Change Additional Handouts bookmark Permission to Verbally Discuss Protected Health Information with Family & Friends Choose Your [employer] brochure [facility] brochure Healthy Beginnings Health Care Products List Patient Guide to Insurance During Your Guide to - https://user[employer].People to Remember.bz/RjsoxcZrcffvzm-Vegs-Zyuzw-yx-m-Yejgizr- Preparing for Childbirth - https://user[employer].People to Remember.bz/SulqtzFsctpucq-Hjy-Zjbo-of-Motherhood Taking Care of You and Your - https://user[employer].People to Remember.bz/LdflynXaqdnned-E-Pry-Beginning documented in this encounter Progress Notes * Kailash Porras MD - 02/05/2023 1:20 PM CDT CLINIC PROGRESS NOTE: FIRST OB VISIT SUBJECTIVE: Patient is a 32 y.o. at 9w0d EGA, based on Patient's last menstrual period was 12/04/2022..She is here today for her initial visit. She has no risk factors for this . She has had nausea, breast tenderness, and fatigue. OB History Para Term AB Living 3 1 1 0 1 1 SAB IAB Ectopic Multiple Live Births 0 0 0 0 1 # Outcome Date GA Lbr Demarcus/2nd Weight Sex Delivery Anes PTL Lv 3 Current 2 Term 12/07/21 M Vag-Spont ALEKSEY 1 Molar Comments: partial molar Past Medical History: Diagnosis Date Endometriosis Female infertility Migraines Partial hydatidiform mole Past Surgical History: Procedure Laterality Date DILATION AND CURETTAGE x2 LAPAROSCOPY OPERATIVE HYSTEROSCOPY PELVIC LAPAROSCOPY treatment of endometriosis Family History Problem Relation Age of Onset No Known Problems Mother Cancer Father No Known Problems Brother No Known Problems Maternal Grandmother No Known Problems Maternal Grandfather Cancer Paternal Grandmother Cancer Paternal Grandfather Outpatient Medications Marked as Taking for the 02/05/23 encounter (Initial ) with Kailash Porras MD Medication Sig Acetylcysteine (NAC OR) MAGNESIUM OR MV-Min-Fe Fum-FA-DHA ( 1 OR) progesterone (PROMETRIUM) 100 MG capsule Insert vaginally. 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 OBJECTIVE: Filed Vitals: 02/05/23 1306 BP: 113/62 Pulse: 69 Weight: 160 lb (72.6 kg) Height: 5' 4 (1.626 m) Estimated body mass index is 27.46 kg/m?? as calculated from the following: Height as of this encounter: 5' 4 (1.626 m). Weight as of this encounter: 160 lb (72.6 kg). Exam is performed with nurse present in the room. In general, the patient appears well-developed, in no apparent distress, with appropriate mood and affect. Lymph node survey, including cervical, supraclavicular, axillary, and inguinal nodes was negative. Skin is without significant lesions Chest is clear to auscultation. Breasts are without masses or discharge bilaterally. The axillae are without masses. Heart has a regular rate and rhythm, normal S1 and S2, no murmurs. Abdomen is soft, nontender, without masses. Extremities are without cords or edema. Pelvic exam was deferred, as the patient is up-to-date on a Pap smear and has had a dating ultrasound. She states that she had a normal Pap smear at an outside clinic within the last few years. heart tones were auscultated with a doptone. A formal, dating ultrasound was done in the Radiology Department today. A single, viable intrauterine was noted. Measurements were consistent with menstrual dating. A small subchorionic hemorrhage was noted. ASSESSMENT: at 9w0d gestation. No risk factors. PLAN: We will do routine new OB labs today. We discussed routine care, physician call schedule, nutrition, exercise. Also offered testing options including NIPT, ultra screen, quad screen, cystic fibrosis carrier screening and amniocentesis. For now, she is declining these. She will return in 3 weeks for her next visit, sooner p.r.n. documented in this encounter Plan of Treatment Not on file documented as of this encounter Results * Treponema Screen (Syphilis) (02/05/2023 1:46 PM CDT) Treponema Screen Result 0.069 {s_co_ratio } 02/05/2023 9:08 PM CDT [facility] Treponema Screen Interpretation Non Reactive Non Reactive 02/05/2023 9:08 PM CDT [facility] Blood Venipuncture / Unknown 02/05/2023 1:46 PM CDT 02/05/2023 1:46 PM CDT Kailash Porras MD LAB_1 [facility] [address] * (ABNORMAL) Urine Culture (02/05/2023 1:46 PM CDT) Urine Culture Growth(A) 02/06/2023 7:00 PM [facility] Urine Culture 10,000 - 50,000 CFU/mL Mixed Bacterial Growth 02/06/2023 7:00 PM [facility] Comment:Mixed Bacterial Grow th indicates the specimen is likely contaminated at collection with urogenital and/or fecal lamont. Urine URINE SPECIMEN COLLECTION, CLEAN CATCH / Unknown Non-blood Collection / Unknown 02/05/2023 1:46 PM CDT 02/05/2023 1:46 PM CDT Kailash Porras MD LAB_[address] [phone] * (ABNORMAL) Rubella Immune Status, IgG (02/05/2023 1:46 PM CDT) Rubella Units 0.89 02/06/2023 10:06 AM CDT [facility] Comment:The magnitude of the measured result, above the cutoff, is not indicative of the amount of antibody present. Rubella Intepretation Not Immune(A) Immune 02/06/2023 10:06 AM CDT [facility] Blood Venipuncture / Unknown 02/05/2023 1:46 PM CDT 02/05/2023 1:46 PM CDT Kailash Porras MD LAB_1 Performing Organization Address [facility]/ZIP Co de Phone Number [facility] [address] [place], [place] [address] * (ABNORMAL) Rapid Drug Panel, Urine (with Confirmation) without THC (02/05/2023 1:46 PM CDT) Pathologist [facility] Amphetamines Screen Not Detected Not Detected 02/05/2023 9:07 PM CDT [facility] Barbiturates Screen Not Detected Not Detected 02/05/2023 9:07 PM CDT [facility] Benzodiazepines Screen Not Detected Not Detected 02/05/2023 9:07 PM CDT [facility] Buprenorphine Screen Not Detected Not Detected 02/05/2023 9:07 PM CDT [facility] Cocaine Metabolite Screen Not Detected Not Detected 02/05/2023 9:07 PM CDT [facility] Methadone Screen Not Detected Not Detected 02/05/2023 9:07 PM CDT [facility] Opiates Screen Not Detected Not Detected 02/05/2023 9:07 PM CDT [facility] Oxycodone Screen Not Detected Not Detected 02/05/2023 9:07 PM CDT [facility] Phencyclidine (PCP) Screen Not Detected Not Detected 02/05/2023 9:07 PM CDT [facility] Creatinine, Urine, Random 19(L) >20 mg/dL 02/05/2023 9:07 PM CDT [facility] Urine Non-blood Collection / Unknown 02/05/2023 1:46 PM CDT 02/05/2023 1:46 PM CDT Narrative [facility] - 02/05/2023 9:07 PM CDT The absence of expected drug(s) and/or drug metabolite(s) may indicate non-compliance, inappropriate timing of specimen collection relative to drug administration, poor drug absorption, diluted/adulterated urine or limitations of testing. The concentration must be greater than or equal to the cutoff concentration to be reported as positive. For medical purposes only: not valid for forensic, legal, or employment use. Results may be affected due to urine creatinine <20 mg/dL. Kailash Porras MD LAB_1 Performing Organization Address [facility] de Phone Number [facility] [address] [place] [address] * HIV 1/2 Ag/Ab 4th Generation (02/05/2023 1:46 PM CDT) Pathologist [facility] HIV 1/2 Antigen/Antib pete (4th generation) Negative (Non Reactive) Negative (Non Reactive) 02/05/2023 9:08 PM CDT [facility] Comment:HIV-1 p24 Antigen an d HIV-1/HIV-2 Antibody not detected Blood Venipuncture / Unknown 02/05/2023 1:46 PM CDT 02/05/2023 1:46 PM CDT Kailash Porras MD LAB_1 Performing Organization Address [facility] Co de Phone Number [facility] [address] * Hgb A1C (02/05/2023 1:46 PM CDT) Pathologist [facility] Hemoglobin A1C 4.8 <=5.6 % 02/06/2023 8:43 AM CDT [facility] Estimated Average Glucose (Calc) 91 < 117 mg/dL 02/06/2023 8:43 AM CDT [facility] Comment:Estimated average gl ucose (eAG) converts A1c into glucose units (mg/dL) and estimates average glucose over the past approximately 3 months. The eAG reference interval (<117 mg/dL) corresponds to an A1c of <5.7%. Blood Venipuncture / Unknown 02/05/2023 1:46 PM CDT 02/05/2023 1:46 PM CDT Kailash Porras MD LAB_1 Performing Organization Address [facility] Co de Phone Number [facility] [address] [phone] * Hepatitis C Antibody, with Reflex (02/05/2023 1:46 PM CDT) [facility] Hepatitis C Antibody Negative (Non Reactive) Negative (Non Reactive) 02/05/2023 9:08 PM CDT [facility] Comment:Antibodies to HCV no t detected. Does not exclude the possiblity of exposure to HCV. Blood Venipuncture / Unknown 02/05/2023 1:46 PM CDT 02/05/2023 1:46 PM CDT Kailash Porras MD LAB_1 Performing Organization Address [facility] de Phone Number [facility] [address] [place] [address] * Hepatitis B Surface Antigen (02/05/2023 1:46 PM CDT) Pathologist [facility] Hepatitis B Surface Antigen Negative (Non Reactive) Negative (Non Reactive) 02/05/2023 9:08 PM CDT [facility] Blood Venipuncture / Unknown 02/05/2023 1:46 PM CDT 02/05/2023 1:46 PM CDT Kailash Porras MD LAB_1 Performing Organization Address [facility] Co de Phone Number [facility] [address] * Complete Blood Count-No Diff (02/05/2023 1:46 PM CDT) WBC 9.0 3.5 - 10.5 x10(9)/L 02/05/2023 1:55 PM CDT [facility] RBC 4.56 3.90 - 5.03 x10(12)/L 02/05/2023 1:55 PM CDT [facility] Hemoglobin 13.5 12.0 - 15.5 g/dL 02/05/2023 1:55 PM CDT [facility] HCT 39.2 34.9 - 44.5 % 02/05/2023 1:55 PM CDT [facility] MCV 86.0 80.0 - 100.0 fL 02/05/2023 1:55 PM CDT [facility] MCH 29.6 27.6 - 33.3 pg 02/05/2023 1:55 PM CDT [facility] MCHC 34.4 31.5 - 35.2 g/dL 02/05/2023 1:55 PM CDT [facility] RDW 12.5 11.9 - 15.5 % 02/05/2023 1:55 PM CDT [facility] Platelets 272 150 - 450 x10(9)/L 02/05/2023 1:55 PM CDT [facility] Blood Venipuncture / Unknown 02/05/2023 1:46 PM CDT 02/05/2023 1:46 PM CDT Kailash Porras MD LAB_[address] [address], [facility] [phone] * Blood Type (02/05/2023 1:46 PM CDT) ABO O 02/05/2023 9:56 PM CDT [facility] RH Positive 02/05/2023 9:56 PM CDT [facility] Blood Venipuncture / Unknown 02/05/2023 1:46 PM CDT 02/05/2023 1:46 PM CDT Kailash Porras MD LAB_1 Performing Organization Address [facility] Co de Phone Number [facility] [place], [place] [address] [place] [address] * Antibody Screen (02/05/2023 1:46 PM CDT) Antibody Screen Interpretation Negative 02/05/2023 9:56 PM CDT [facility] Blood Venipuncture / Unknown 02/05/2023 1:46 PM CDT 02/05/2023 1:46 PM CDT Kailash Porras MD LAB_1 Performing Organization Address [facility] de Phone Number [facility] [address] documented in this encounter Visit Diagnoses Diagnosis Encounter for supervision of other normal in first trimester- Primary documented in this encounter Care Teams Log Deckman Relationship Specialty Start Date [place] [address] PCP - General 01/07/23 documented as of this encounter
--- OUTSIDE RECORDS SUMMARY | 2023-10-29 13:58 | XMS_ITS | Encounter Summary ---
Author Name Unknown Organization [facility] Address [address] [place] [address] Care Team Providers Care Mechanical Engineering Teacher Name Role Phone Needs Pcp, Assignment Primary Care Provider [phone] Reason for Visit * Reason Comments Routine Visit Encounter Details Date Type Department Care Team Description 02/26/2023 11:20 AM CDT Routine [place] 1515 Obstetrics/Gynecolo gy 1515 [facility] [place], [place] [phone] Kailash Porras MD 1515 [facility] [address] [place], [place] [phone] Routine Visit Social History Tobacco Use Types [...] Sign Reading Time Taken Comments Blood Pressure 116/66 02/26/2023 11:25 AM CDT Pulse 90 02/26/2023 11:25 AM CDT Temperature - - Respiratory Rate - - Oxygen Saturation - - Inhaled Oxygen Concentration - - Weight 74 kg (163 lb 3.2 oz) 02/26/2023 11:25 AM CDT Height - - Body Mass Index 28.01 02/05/2023 1:06 PM CDT documented in this encounter Progress Notes * Kailash Porras MD - 02/26/2023 11:20 AM CDT Visit 12w0d Had viral gastroenteritis just after last visit, had IV hydration in ER. Labs reviewed. Offer Quad screen next. documented in this encounter Plan of Treatment Not on file documented as of this encounter Visit Diagnoses Diagnosis Encounter for supervision of other normal in first trimester- Primary documented in this encounter Care Teams Mechanical Engineering Teacher Relationship Specialty Start Date End Date Needs Pcp, [place] [address] PCP - General 01/07/23 documented as of this encounter
--- OUTSIDE RECORDS SUMMARY | 2023-10-29 13:58 | XMS_ITS | Referral Summary ---
Author Name Unknown Organization [facility] Address [address] [place] [address] Care Team Providers Care Photographic Process Screen Maker Name Role Phone Kailash Porras MD Primary Care Provider [phone] Allergies Active Allergy Reactions Criticality Noted Date Comments Penicillins Rash Low 01/07/2023 Social History Tobacco Use Types Packs/Day Years Used Date Smoking Tobacco: Never Assessed Adolescent Education Answer Date Record ed Getting School Help Needed Not on file 06/21 Estimated Date of Delivery Comme nts Yes 09/10/2023 Sex and Gender Information Value Date Recorded Sex Assigned at Not on file Gender Identity Not on file Sexual Orientation Not on file Last Filed Vital Signs Vital Sign Reading Time Taken Comments Blood Pressure 113/77 02/05/2023 11:51 PM CDT Pulse 82 02/05/2023 11:51 PM CDT Temperature 36.9 ??C (98.5 ??F) 02/05/2023 11:51 PM C DT Respiratory Rate 16 02/05/2023 11:51 PM CDT Oxygen Saturation 96% 02/05/2023 11:51 PM CDT Inhaled Oxygen Concentration - - Weight - - Height - - Body Mass Index - - Plan of Treatment Not on file Care Teams Photographic Process Screen Maker Relationship Specialty Start Date End Date Kailash Porras MD PCP - General 02/06/23
--- OUTSIDE RECORDS SUMMARY | 2023-10-29 13:58 | XMS_ITS | Encounter Summary ---
Author Name Unknown Organization [address] [address] Care Team Providers Care Passenger Barge Master Name Role Phone Kailash Porras MD Primary Care Provider Reason for Visit * Reason Comments Morning Sickness Encounter Details Date Type Department Care Team (Late st Contact Info) Description 02/06/2023 12:42 AM CDT - 02/06/2023 2:56 AM CDT Emergency [facility] Emergency Dept [address] [place] [address] Giana Rogers, DO [facility] [address] [facility] [place] [address] Nausea vomiting and diarrhea; Dehydration Discharge Disposition: Home or Self Care Social History Tobacco Use Types Packs/Day Years [...] PM CDT documented as of this encounter Last Filed [...] Index - - documented in this encounter Discharge Instructions * Attachments The following attachments cannot be sent through Care Everywhere. * Dehydration (Adult) (Luxembourger) * Vomiting and Diarrhea, Nonspecific (Adult) (Luxembourger) documented in this encounter Medications at Time of Discharge Medication Sig Dispensed Refills Start Date End Date ondansetron (ZOFRAN ODT) 4 MG ODT tab Take 1 tablet (4 mg) by mouth every 8 hours as needed for nausea 10 tablet 0 02/06/2023 02/09/2023 documented as of this encounter ED Notes * Kendra Lua RN - 02/05/2023 11:30 PM CDT Pt presents with vomiting and diarrhea that started today. Pt is 9 weeks . A1. Shes states son also has vomiting and diarrhea as well. Triage Assessment Row Name 02/05/23 6322 Triage Assessment (Adult) Airway WDL WDL Respiratory WDL Respiratory WDL WDL Skin Circulation/Temperature WDL Skin Circulation/Temperature WDL WDL Cardiac WDL Cardiac WDL WDL Peripheral/Neurovascular WDL Peripheral Neurovascular WDL WDL Cognitive/Neuro/Behavioral WDL Cognitive/Neuro/Behavioral WDL WDL * Giana Rogers DO - 02/05/2023 11:08 PM CDT History Chief Complaint: Vomiting HPI Sara Bañuelos is a 32 year old female 9 weeks A1 with history of endometriosis who presents with vomiting. Sara states that since about 1900 she's had about eight episodes of emesis associated with some diarrhea. She notes that some of the vomit did contain specks of blood. During evaluation, aSra's also states that their son has also been experiencing diarrhea and emesis. Sara otherwise denies any chills, fever, rhinorrhea, sore throat, cough, significant abdominal pain, dysuria, vaginal bleeding, or vaginal discharge. Of note, Sara did have a confirmed ultrasound earlier today. Independent Historian: supplements as above Review of External Notes: I reviewed the patient's office visit from 02/05/23. ROS: Review of Systems Constitutional: Negative for chills and fever. HENT: Negative for rhinorrhea. Respiratory: Negative for cough. Gastrointestinal: Positive for diarrhea and vomiting (hematemesis). Genitourinary: Negative for dysuria, vaginal bleeding and vaginal discharge. All other systems reviewed and are negative. Allergies: Penicillins Medications: Progesterone Acetylcysteine Pyridoxine Cholecalciferol Past Medical History: Endometriosis Migraines Past Surgical History: D&C x2 Pelvic laparoscopy Operative hysteroscopy Unspecified laparoscopy Family History: Unspecified cancer - father Social History: Patient is accompanied in the ED by her . Patient has no established PCP in the system. Physical Exam Patient Vitals for the past 24 hrs: BP Temp Temp src Pulse Resp SpO2 02/05/23 2351 113/77 98.5 ??F (36.9 ??C) Temporal 82 16 96 % Physical Exam Nursing note and vitals reviewed. Constitutional: Well nourished. Eyes: Conjunctiva normal. Pupils are equal, round, and reactive to light. ENT: Nose normal. Mucous membranes pink and dry. Neck: Normal range of motion. CVS: Normal rate, regular rhythm. Normal heart sounds. Pulmonary: Lungs clear to auscultation bilaterally. No wheezes/rales/rhonchi. GI: Abdomen soft. Nontender, nondistended. No rigidity or guarding. No CVA tenderness MSK: No calf tenderness or swelling. Neuro: Alert. Follows simple commands. Skin: Skin is warm and dry. No rash noted. Psychiatric: Normal affect. Emergency Department Course Laboratory: Labs Ordered and Resulted from Time of ED Arrival to Time of ED Departure BASIC METABOLIC PANEL - Abnormal Result Value Sodium 138 Potassium 4.0 Chloride 103 Carbon Dioxide (CO2) 19 (*) Anion Gap 16 (*) Urea Nitrogen 14.4 Creatinine 0.61 Calcium 9.1 Glucose 133 (*) GFR Estimate >90 HCG QUANTITATIVE - Abnormal hCG Quantitative 103,939 (*) CBC WITH PLATELETS AND DIFFERENTIAL - Abnormal WBC Count 19.1 (*) RBC Count 4.86 Hemoglobin 14.7 Hematocrit 42.2 MCV 87 MCH 30.2 MCHC 34.8 RDW 12.5 Platelet Count 255 % Neutrophils 93 % Lymphocytes 3 % Monocytes 4 % Eosinophils 0 % Basophils 0 % Immature Granulocytes 0 NRBCs per 100 WBC 0 Absolute Neutrophils 17.7 (*) Absolute Lymphocytes 0.5 (*) Absolute Monocytes 0.8 Absolute Eosinophils 0.0 Absolute Basophils 0.1 Absolute Immature Granulocytes 0.1 Absolute NRBCs 0.0 URINE MACROSCOPIC WITH REFLEX TO MICRO - Abnormal Color Urine Yellow Appearance Urine Clear Glucose Urine Negative Bilirubin Urine Negative Ketones Urine 100 (*) Specific [place] Urine 1.028 Blood Urine Negative pH Urine 6.0 Protein Albumin Urine 20 (*) Urobilinogen Urine Normal Nitrite Urine Negative Leukocyte Esterase Urine Negative RBC Urine 1 WBC Urine 1 Squamous Epithelials Urine 3 (*) Mucus Urine Present (*) INFLUENZA A/B, RSV, & SARS-COV2 PCR - Normal Influenza A PCR Negative Influenza B PCR Negative RSV PCR Negative SARS CoV2 PCR Negative HEPATIC FUNCTION PANEL - Normal Protein Total 7.7 Albumin 4.5 Bilirubin Total 0.5 Alkaline Phosphatase 71 AST 24 ALT 15 Bilirubin Direct <0.20 LIPASE - Normal Lipase 16 Procedures none Emergency Department Course & Assessments: Interventions: Medications 0.9% sodium chloride BOLUS (0 mLs Intravenous Stopped 02/06/23 0216) ondansetron (ZOFRAN) injection 4 mg (4 mg Intravenous $Given 02/05/23 2349) metoclopramide (REGLAN) tablet 10 mg (10 mg Oral $Given 02/06/23 0229) Assessments: 0132 I obtained history and examined the patient as noted above. 0247 I rechecked and updated the patient. At this time, the patient was deemed safe to discharge home and she agreed to the plan of care. Independent Interpretation (X-rays, CTs, rhythm strip): None Consultations/Discussion of Management or Tests: None Social Determinants of Health affecting care: None Disposition: The patient was discharged to home. Impression & Plan [facility] Diagnoses: None Medical Decision Making: Patient is a 32-year-old female in first trimester presenting with vomiting and diarrhea.She is nontoxic though mildly dehydrated on arrival. She is in no significant distress. Labs without evidence of profound electrolyte derangements. UA without evidence of obvious infection though does suggest underlying dehydration. After IV fluids and antiemetics, patient was tolerating p.o. without difficulty. She tested negative for COVID-19/influenza/RSV. She has no abdominal tenderness and Idoubt intra-abdominal catastrophe. She denies any vaginal bleeding/discharge and I do not feel further advanced work-up is warranted at this point in time. She does have a noted leukocytosis though [facility] all[facility] suspicion this is more reactive. I doubt serious bacterial etiology at this point in time. Patient feels comfortable with discharge home at this point in time. Monitor for lethargy, protractedvomiting or should symptoms worsen or change to promptly represent to the ED. Dietary recommendations discussed. Patient did report few episodes of blood-tinged vomiting. Stronger suspicion this is more secondary to underlying Najma-Jerome tear. No evidence to suggest esophageal perforation and I doubt underlying varices/gastritis based on presentation. I did discuss with patient she could pursue Prilosec [id number] with plans for close PCP follow-up. We also reviewed outpatient stool testing may be warranted in future if symptoms persist. Diagnosis: ICD-10-CM 1. Nausea vomiting and diarrhea R11.2 R19.7 2. Dehydration E86.0 Discharge Medications: New Prescriptions ONDANSETRON (ZOFRAN ODT) 4 MG ODT TAB Take 1 tablet (4 mg) by mouth every 8 hours as needed for nausea Scribe Disclosure: INurys, am serving as a scribe at 1:31 AM on 02/06/2023 to document services personally performed by Giana Rogers DO based on my observations and the provider's statements to me. 02/06/2023 Giana Rogers DO McDonald, Lindsey E, DO 02/06/23 0504 documented in this encounter Plan of Treatment Not on file documented as of this encounter Procedures Procedure Name Priority Date/Time Associated Diagnosis Comments URINE MACROSCOPIC WITH REFLEX TO MICRO STAT 02/06/2023 1:41 AM CDT CBC WITH PLATELETS AND DIFFERENTIAL STAT 02/05/2023 11:50 PM CDT INFLUENZA A/B, RSV, & SARS-COV2 PCR STAT 02/05/2023 11:50 PM CDT CBC WITH PLATELETS & DIFFERENTIAL STAT 02/05/2023 11:50 PM CDT LIPASE Add-On 02/05/2023 11:50 PM CDT HEPATIC FUNCTION PANEL Add-On 02/05/2023 11:50 PM CDT HCG QUANTITATIVE STAT 02/05/2023 11:50 PM CDT BASIC METABOLIC PANEL STAT 02/05/2023 11:50 PM CDT documented in this encounter Results * (ABNORMAL) UA reflex to Microscopic (02/06/2023 1:41 AM CDT) Color Urine Yellow Colorless, Straw, Light Yellow, Yellow 02/06/2023 1:58 AM CDT [facility] Appearance Urine Clear Clear 02/07/20 1:58 AM CDT [facility] Glucose Urine Negative Negative mg/dL 02/06/2023 1:58 AM CDT [facility] Bilirubin Urine Negative Negative 1:58 AM CDT [facility] Ketones Urine 100(A) Negative mg/dL 02/06/2023 1:58 AM CDT [facility] Specific [place] Urine 1.028 1.003 - 1.035 02/06/2023 1:58 AM CDT [facility] Blood Urine Negative Negative 02/06/2023 1:58 AM CDT [facility] pH Urine 6.0 5.0 - 7.0 02/06/2023 1:58 AM CDT [facility] Protein Albumin Urine 20(A) Negative mg/dL 02/06/2023 1:58 AM CDT [facility] Urobilinogen Urine Normal Normal, 2.0 mg/dL 02/06/2023 1:58 AM CDT [facility] Nitrite Urine Negative Negative 02/06/2023 1:58 AM CDT [facility] Leukocyte Esterase Urine Negative Negative 02/06/2023 1:58 AM CDT [facility] RBC Urine 1 <=2 /HPF 02/06/2023 1:58 AM CDT [facility] WBC Urine 1 <=5 /HPF 02/06/2023 1:58 AM CDT [facility] Squamous Epithelials Urine 3(H) <=1 /HPF 02/06/2023 1:58 AM CDT [facility] Mucus Urine Present(A) None Seen /LPF 02/06/2023 1:58 AM CDT LABORATORY Urine URINE SPECIMEN OBTAINED BY CLEAN CATCH PROCEDURE / Unknown Non-blood Collection / Unknown 02/06/2023 1:41 AM CDT 02/06/2023 1:47 AM CDT Giana Rogers DO LAB - URINE ORDERA BLES LABORATORY [facility] [address] Lab (1st floor, no room number) [place] [address], [facility] [phone] * Lipase (02/05/2023 11:50 PM CDT) Lipase 16 13 - 60 U/L 02/06/2023 2:06 AM CDT LABORATORY Blood BLOOD SPECIMEN / Unknown Venipuncture / Unknown 02/05/2023 11:50 PM CDT 02/05/2023 11:56 PM CDT Giana Rogers DO LAB - BLOOD ORDERA BLES Performing Organization Address City/[facility]/ZIP Co de Phone Number LABORATORY [facility] Lab [address] Lab (1st floor, no room number) [place] [phone], [facility] [phone] * Hepatic panel (02/05/2023 11:50 PM CDT) Protein Total 7.7 6.4 - 8.3 g/dL 02/06/2023 2:27 AM CDT LABORATORY Albumin 4.5 3.5 - 5.2 g/dL 02/06/2023 2:27 AM CDT LABORATORY Bilirubin Total 0.5 <=1.2 mg/dL 02/06/2023 2:27 AM CDT LABORATORY Alkaline Phosphatase 71 35 - 104 U/L 02/06/2023 2:27 AM CDT LABORATORY AST 24 10 - 35 U/L 02/06/2023 2:27 AM CDT LABORATORY Comment:Specimen is hemolyze d which can falsely elevate AST. Analysis of a non-hemolyzed specimen may result in a lower value. ALT 15 10 - 35 U/L 02/06/2023 2:27 AM CDT [facility] Bilirubin Direct <0.20 0.00 - 0.30 mg/dL 02/06/2023 2:27 AM CDT [facility] Blood BLOOD SPECIMEN / Unknown Venipuncture / Unknown 02/05/2023 11:50 PM CDT 02/05/2023 11:56 PM CDT Giana Rogers DO LAB - BLOOD ORDERA BLES [facility] [address] Lab (1st floor, no room number) [place] [address], [facility] [phone] * (ABNORMAL) CBC with platelets and differential (02/05/2023 11:50 PM CDT) WBC Count 19.1(H) 4.0 - 11.0 10e3/uL 02/05/2023 11:59 PM CDT [facility] RBC Count 4.86 3.80 - 5.20 10e6/uL 02/05/2023 11:59 PM CDT [facility] Hemoglobin 14.7 11.7 - 15.7 g/dL 02/05/2023 11:59 PM CDT [facility] Hematocrit 42.2 35.0 - 47.0 % 02/05/2023 11:59 PM CDT [facility] MCV 87 78 - 100 fL 02/05/2023 11:59 PM CDT [facility] MCH 30.2 26.5 - 33.0 pg 02/05/2023 11:59 PM CDT [facility] MCHC 34.8 31.5 - 36.5 g/dL 02/05/2023 11:59 PM CDT [facility] RDW 12.5 10.0 - 15.0 % 02/05/2023 11:59 PM CDT [facility] Platelet Count 255 150 - 450 10e3/uL 02/05/2023 11:59 PM CDT [facility] % Neutrophils 93 % 02/05/2023 11:59 PM CDT [facility] % Lymphocytes 3 % 02/05/2023 11:59 PM CDT [facility] % Monocytes 4 % 02/05/2023 11:59 PM CDT [facility] % Eosinophils 0 % 02/05/2023 11:59 PM CDT [facility] % Basophils 0 % 02/05/2023 11:59 PM CDT [facility] % Immature Granulocytes 0 % 02/05/2023 11:59 PM CDT [facility] NRBCs per 100 WBC 0 <1 /100 023 11:59 PM CDT [facility] Absolute Neutrophils 17.7(H) 1.6 - 8.3 10e3/uL 02/05/2023 11:59 PM CDT [facility] Absolute Lymphocytes 0.5(L) 0.8 - 5.3 10e3/uL 02/05/2023 11:59 PM CDT [facility] Absolute Monocytes 0.8 0.0 - 1.3 10e3/uL 02/05/2023 11:59 PM CDT [facility] Absolute Eosinophils 0.0 0.0 - 0.7 10e3/uL 02/05/2023 11:59 PM CDT [facility] Absolute Basophils 0.1 0.0 - 0.2 10e3/uL 02/05/2023 11:59 PM CDT [facility] Absolute Immature Granulocytes 0.1 <=0.4 10e3/uL 02/05/2023 11:59 PM CDT [facility] Absolute NRBCs 0.0 10e3/uL 02/05/2023 11:59 PM CDT [facility] Blood BLOOD SPECIMEN / Unknown Venipuncture / Unknown 02/05/2023 11:50 PM CDT 02/05/2023 11:56 PM CDT Giana Rogers DO LAB - BLOOD ORDERA BLES [facility] [address] Lab (1st floor, no room number) [place] [address], [facility] [phone] * (ABNORMAL) HCG QUANTitative (blood) (02/05/2023 11:50 PM CDT) hCG Quantitative 103,939(H ) <5 mIU/mL 02/06/2023 12:50 AM CDT [facility] Comment: Adult: 0-5 mIU/mL for healthy non- person Neonates: Should be within normal ranges by 2 days after Blood BLOOD SPECIMEN / Unknown Venipuncture / Unknown 02/05/2023 11:50 PM CDT 02/05/2023 11:56 PM CDT Giana Rogers DO LAB - BLOOD ORDERA BLES LABORATORY [facility] [address] Lab (1st floor, no room number) [place] [address], [facility] [phone] * (ABNORMAL) Basic metabolic panel (BMP) (02/05/2023 11:50 PM CDT) Sodium 138 136 - 145 mmol/L 02/06/2023 12:37 AM CDT LABORATORY Potassium 4.0 3.4 - 5.3 mmol/L 02/06/2023 12:37 AM CDT LABORATORY Chloride 103 98 - 107 mmol/L 02/06/2023 12:37 AM CDT LABORATORY Carbon Dioxide (CO2) 19(L) 22 - 29 mmol/L 02/06/2023 12:37 AM CDT LABORATORY Anion Gap 16(H) 7 - 15 mmol/L 02/06/2023 12:37 AM CDT LABORATORY Urea Nitrogen 14.4 6.0 - 20.0 mg/dL 02/06/2023 12:37 AM CDT LABORATORY Creatinine 0.61 0.51 - 0.95 mg/dL 02/06/2023 12:37 AM CDT LABORATORY Calcium 9.1 8.6 - 10.0 mg/dL 02/06/2023 12:37 AM CDT LABORATORY Glucose 133(H) 70 - 99 mg/dL 02/06/2023 12:37 AM CDT LABORATORY GFR Estimate >90 >60 mL/min/1.7 3m2 02/06/2023 12:37 AM CDT LABORATORY Comment:eGFR calculated usin 2020 CKD-EPI equation. Blood BLOOD SPECIMEN / Unknown Venipuncture / Unknown 02/05/2023 11:50 PM CDT 02/05/2023 11:56 PM CDT Giana Rogers DO LAB - BLOOD ORDERA BLES LABORATORY [facility] [address] [facility] Lab (1st floor, no room number) [place] [address], [facility] [phone] * Symptomatic Influenza A/B, RSV, & SARS-CoV2 PCR (COVID-19) Nasopharyngeal (02/05/2023 11:50 PM CDT) [facility] Influenza A PCR Negative Negative 02/06/2023 12:33 AM CDT LABORATORY Influenza B PCR Negative Negative 02/06/2023 12:33 AM CDT LABORATORY RSV PCR Negative Negative 02/06/2023 12:33 AM CDT LABORATORY SARS CoV2 PCR Negative Negative 02/06/2023 12:33 AM CDT LABORATORY Comment:NEGATIVE: SARS-CoV-2 (COVID-19) RNA not detected, presumed negative. Swab NASOPHARYNGEAL STRUCTURE / Unknown Non-blood Collection / Unknown 02/05/2023 11:50 PM CDT 02/05/2023 11:56 PM CDT Narrative LABORATORY - 02/06/2023 12:33 AM CDT Testing was performed using the Xpert Xpress CoV2/Flu/RSV Assay on the [employer] GeneXpert Instrument. This test should be ordered for the detection of SARS-CoV-2, influenza, and RSV viruses in individuals who meet clinical and/or epidemiological criteria. Test performance is unknown in asymptomatic patients. This test is for in vitro diagnostic use under the FDA EUA for laboratories certified under CLIA to perform high or moderate complexity testing. This test has not been FDA cleared or approved. A negative result does not rule out the presence of PCR inhibitors in the specimen or target RNA in concentration below the limit of detection for the assay. If only one viral target is positive but coinfection with multiple targets is suspected, the sample should be re-tested with another FDA cleared, approved, or authorized test, if coinfection would change clinical management. This test was validated by the [facility]. These laboratories are certified under the Clinical Laboratory Improvement Amendments of 1988 (CLIA-88) as qualified to perform high complexity laboratory testing. Giana Rogers DO LAB - MICRO GENERA L ORDERABLES [facility] Lab [address] [facility] Lab (1st floor, no room number) [place] [address], [facility] [phone] documented in this encounter Visit Diagnoses Diagnosis Nausea vomiting and diarrhea Nausea with vomiting Dehydration documented in this encounter Administered Medications Inactive Administered Medications - up to 3 most recent administrations Medication Order MAR Action Action Date Dose Rate Site 0.9% sodium chloride BOLUS Intravenous, 1,000 mL, ONCE, at 1,000 mL/hr, Administer over 1 Hours, On Fri02/05/23 at 2340, For 1 dose $New Bag 02/05/2023 11:49 PM CDT 1,000 mLs 1000 mL/hr metoclopramide (REGLAN) tablet 10 mg 10 mg, Oral, ONCE, On Glo 02/06/23 at 0225, For 1 dose, Recommend to take before meals. Avoid use if patient has full bowel obstruction or perforation. $Given 02/06/2023 2:29 AM CDT 10 mg ondansetron (ZOFRAN) injection 4 mg 4 mg, Intravenous, ONCE, Administer over 2-5 Minutes, On Fri02/05/23 at 2340, For 1 dose, Irritant. $Given 02/05/2023 11:49 PM CDT 4 mg documented in this encounter Active and Recently Administered Medications Times are shown in CDT. Scheduled Medication Order 02/04/2023 02/05/2023 02/06/2023 0.9% sodium chloride BOLUS (COMPLETED) Intravenous, 1,000 mL, ONCE, at 1,000 mL/hr, Administer over 1 Hours, On Fri02/05/23 at 2340, For 1 dose 2349 ($New Bag - Provider: Kendra Lua RN) 0216 (Stopped - Provider: Belinda Rivera RN) metoclopramide (REGLAN) tablet 10 mg (COMPLETED) 10 mg, Oral, ONCE, On Glo 02/06/23 at 0225, For 1 dose, Recommend to take before meals. Avoid use if patient has full bowel obstruction or perforation. 022 ($Given - Provi salena: Belinda Rivera RN) ondansetron (ZOFRAN) injection 4 mg (COMPLETED) 4 mg, Intravenous, ONCE, Administer over 2-5 Minutes, On Fri02/05/23 at 2340, For 1 dose, Irritant. 2349 ($Given - Provider: Kendra Lua RN) documented in this encounter Care Teams Passenger Barge Master Relationship Specialty Start Date End Date Kailash Porras MD PCP - General 02/06/23 documented as of this encounter
--- OUTSIDE RECORDS SUMMARY | 2023-10-29 13:58 | XMS_ITS | Encounter Summary ---
Author Name Unknown Organization [facility] Address [address] [place] [address] Care Team Providers Care Mobile Application Architect Name Role Phone Needs Pcp, Assignment Primary Care Provider [phone] Reason for Visit * Reason Comments Nausea With Vomiting Encounter Details Date Type Department Care Team Description 02/06/2023 Telephone [employer] [facility] Obstetrics/Gynecology [address] [facility] [place] [address] Kailash Porras MD [address] [facility] [address] [place] [address] Nausea With Vomiting Social History Tobacco Use Types Packs/Day Years [...] on file documented as of this encounter Nursing Notes * Ewa Spring RN - 02/06/2023 11:14 AM CDT Patient calling after being in ED on 02/05 for N/V/D. She was given IV fluids and IV antiemetics anddischarged home. She is calling to provide update for this and states she is feeling better, tolerating PO fluids and some small amounts of food. Denies emesis since discharge but did have diarrhea x1 today but has not tried OTC med. Reviewed the below and patient agrees to call back with further c oncerns or questions. Medications with Triage Reference SYMPTOMS: diarrhea Diarrhea medication use during : Do NOT use Pepto-Bismol or Kaopectate during asit contains salicylates (component of Aspirin). Immodium is OK for use. Advised to call back if any of the following occur: symptoms worsen, any other questions or concerns. Patient/Caller agrees with plan and denies additional questions. Status: Estimated date of confinement is Estimated Date of Delivery: 09/10/23. documented in this encounter Plan of Treatment Not on file documented as of this encounter Visit Diagnoses Not on filedocumented in this encounter Care Teams Mobile Application Architect Relationship Specialty Start Date End Date Needs Pcp, [place] [address] PCP - General 01/07/23 documented as of this encounter
--- OUTSIDE RECORDS SUMMARY | 2023-10-29 13:58 | XMS_ITS | Encounter Summary ---
Author Name Unknown Organization [facility] Address [address] [place] [address] Care Team Providers Care Datawarehouse Developer Name Role Phone Needs Pcp, Assignment Primary Care Provider [phone] Encounter Details Date Type Department Care Team Description 02/05/2023 3:10 PM CDT Lab Visit [facility] [address] [facility] [place] [address] Encounter for supervision of other normal in first trimester Social History Tobacco Use Types Packs/Day Years [...] Procedure Name Priority Date/Time Associated Diagnosis Comments RUBELLA IMMUNE STATUS, IGG Routine 02/05/2023 1:46 PM CDT Encounter for supervision of other normal in first trimester URINE CULTURE Routine 02/05/2023 1:46 PM CDT Encounter for supervision of other normal in first trimester ANTIBODY SCREEN Routine 02/05/2023 1:46 PM CDT Encounter for supervision of other normal in first trimester TREPONEMA SCREEN Routine 02/05/2023 1:46 PM CDT Encounter for supervision of other normal in first trimester BLOOD TYPE Routine 02/05/2023 1:46 PM CDT Encounter for supervision of other normal in first trimester RAPID DRUG PANEL, URINE (WITH CONFIRMATION) Routine 02/05/2023 1:46 PM CDT Encounter for supervision of other normal in first trimester HIV 1/2 AG/AB 4TH GEN Routine 02/05/2023 1:46 PM CDT Encounter for supervision of other normal in first trimester COMPLETE BLOOD COUNT-NO DIFF Routine 02/05/2023 1:46 PM CDT Encounter for supervision of other normal in first trimester HEPATITIS C ANTIBODY, WITH REFLEX Routine 02/05/2023 1:46 PM CDT Encounter for supervision of other normal in first trimester HBSAG (HEPATITIS B SURFACE AG) Routine 02/05/2023 1:46 PM CDT Encounter for supervision of other normal in first trimester HGB A1C Routine 02/05/2023 1:46 PM CDT Encounter for supervision of other normal in first trimester documented in this encounter Results * Treponema Screen (Syphilis) (02/05/2023 1:46 PM CDT) Treponema Screen Result 0.069 {s_co_ratio } 02/05/2023 9:08 PM CDT [facility] Treponema Screen Interpretation Non Reactive Non Reactive 02/05/2023 9:08 PM CDT [facility] Blood Venipuncture / Unknown 02/05/2023 1:46 PM CDT 02/05/2023 1:46 PM CDT Kailash Porras MD LAB_1 [facility] [address] [employer] * (ABNORMAL) Urine Culture (02/05/2023 1:46 PM CDT) [facility] Urine Culture Growth(A) 02/06/2023 7:00 PM CDT [facility] Urine Culture 10,000 - 50,000 CFU/mL Mixed Bacterial Growth 02/06/2023 7:00 PM CDT [facility] Comment:Mixed Bacterial Grow th indicates the specimen is likely contaminated at collection with urogenital and/or fecal lamont. Urine URINE SPECIMEN COLLECTION, CLEAN CATCH / Unknown Non-blood Collection / Unknown 02/05/2023 1:46 PM CDT 02/05/2023 1:46 PM CDT Kailash Porras MD LAB_1 Performing Organization Address [facility]/ZIP Co de Phone Number [address] [phone] * (ABNORMAL) Rubella Immune Status, IgG (02/05/2023 1:46 PM CDT) [facility] Rubella Units 0.89 02/06/2023 10:06 AM CDT [facility] Comment:The magnitude of the measured result, above the cutoff, is not indicative of the amount of antibody present. Rubella Intepretation Not Immune(A) Immune 02/06/2023 10:06 AM CDT [facility] Blood Venipuncture / Unknown 02/05/2023 1:46 PM CDT 02/05/2023 1:46 PM CDT Kailash Porras MD LAB_1 [facility] [address] [place], [place] [address] * (ABNORMAL) Rapid Drug Panel, Urine (with Confirmation) without THC (02/05/2023 1:46 PM CDT) [facility] Amphetamines Screen Not Detected Not Detected 02/05/2023 9:07 PM CDT [facility] Barbiturates Screen Not Detected Not Detected 02/05/2023 9:07 PM CDT [facility] Benzodiazepines Screen Not Detected Not Detected 02/05/2023 9:07 PM CDT [facility] Buprenorphine Screen Not Detected Not Detected 02/05/2023 9:07 PM CDT [facility] Cocaine Metabolite Screen Not Detected Not Detected 02/05/2023 9:07 PM CDT [facility] Methadone Screen Not Detected Not Detected 02/05/2023 9:07 PM CDT [facility] Opiates Screen Not Detected Not Detected 02/05/2023 9:07 PM CDT [facility] Oxycodone Screen Not Detected Not Detected 02/05/2023 9:07 PM CDT [facility] Phencyclidine (PCP) Screen Not Detected Not Detected 02/05/2023 9:07 PM CDT [facility] Creatinine, Urine, Random 19(L) >20 mg/dL 02/05/2023 9:07 PM CDT [facility] Urine Non-blood Collection / Unknown 02/05/2023 1:46 PM CDT 02/05/2023 1:46 PM CDT [facility] - 02/05/2023 9:07 PM CDT The [...] creatinine <20 mg/dL. Kailash Porras MD LAB_1 [facility] [address] * HIV 1/2 Ag/Ab 4th Generation (02/05/2023 1:46 PM CDT) [facility] HIV 1/2 Antigen/Antib pete (4th generation) Negative (Non Reactive) Negative (Non Reactive) 02/05/2023 9:08 PM CDT [facility] Comment:HIV-1 p24 Antigen an d HIV-1/HIV-2 Antibody not detected Blood Venipuncture / Unknown 02/05/2023 1:46 PM CDT 02/05/2023 1:46 PM CDT Kailash Porras MD LAB_1 Performing Organization Address [facility] de Phone Number [facility] [address] * Hgb A1C (02/05/2023 1:46 PM CDT) Pathologist [facility] Hemoglobin A1C 4.8 <=5.6 % 02/06/2023 8:43 AM CDT [facility] Estimated Average Glucose (Calc) 91 < 117 mg/dL 02/06/2023 8:43 AM CDT [facility] Comment:Estimated average gl ucose (eAG) converts A1c into glucose units (mg/dL) and estimates average glucose over the past approximately 3 months. The eAG reference interval (<117 mg/dL) corresponds to an A1c of <5.7%. Blood Venipuncture / Unknown 02/05/2023 1:46 PM CDT 02/05/2023 1:46 PM CDT Kailash Porras MD LAB_1 Performing Organization Address [facility] de Phone Number [facility] [address] [phone] * Hepatitis C Antibody, with Reflex (02/05/2023 1:46 PM CDT) Pathologist [facility] Hepatitis C Antibody Negative (Non Reactive) Negative (Non Reactive) 02/05/2023 9:08 PM CDT [facility] Comment:Antibodies to HCV no t detected. Does not exclude the possiblity of exposure to HCV. Blood Venipuncture / Unknown 02/05/2023 1:46 PM CDT 02/05/2023 1:46 PM CDT Kailash Porras MD LAB_1 Performing Organization Address [facility] Co de Phone Number [facility] [address] * Hepatitis B Surface Antigen (02/05/2023 1:46 PM CDT) [facility] Hepatitis B Surface Antigen Negative (Non Reactive) Negative (Non Reactive) 02/05/2023 9:08 PM CDT [facility] Blood Venipuncture / Unknown 02/05/2023 1:46 PM CDT 02/05/2023 1:46 PM CDT Kailash Porras MD LAB_1 [facility] [address] [employer] [address] * Complete Blood Count-No Diff (02/05/2023 1:46 PM CDT) [facility] WBC 9.0 3.5 - 10.5 x10(9)/L 02/05/2023 1:55 PM CDT [facility] RBC 4.56 3.90 - 5.03 x10(12)/L 02/05/2023 1:55 PM CDT [facility] Hemoglobin 13.5 12.0 - 15.5 g/dL 02/05/2023 1:55 PM CDT [facility] HCT 39.2 34.9 - 44.5 % 02/05/2023 1:55 PM CDT [facility] MCV 86.0 80.0 - 100.0 fL 02/05/2023 1:55 PM CDT [facility] MCH 29.6 27.6 - 33.3 pg 02/05/2023 1:55 PM CDT [facility] MCHC 34.4 31.5 - 35.2 g/dL 02/05/2023 1:55 PM CDT [facility] RDW 12.5 11.9 - 15.5 % 02/05/2023 1:55 PM CDT [facility] Platelets 272 150 - 450 x10(9)/L 02/05/2023 1:55 PM CDT [facility] Blood Venipuncture / Unknown 02/05/2023 1:46 PM CDT 02/05/2023 1:46 PM CDT Kailash Porras MD LAB_1 [facility] [address] [place] [address], [facility] [phone] * Blood Type (02/05/2023 1:46 PM CDT) ABO O 02/05/2023 9:56 PM CDT [facility] RH Positive 02/05/2023 9:56 PM CDT [facility] Blood Venipuncture / Unknown 02/05/2023 1:46 PM CDT 02/05/2023 1:46 PM CDT Kailash Porras MD LAB_1 Performing Organization Address City/[facility] Co de Phone Number [facility] [address] [place], [place] [phone] [place] [address] * Antibody Screen (02/05/2023 1:46 PM CDT) Antibody Screen Interpretation Negative 02/05/2023 9:56 PM CDT [facility] Blood Venipuncture / Unknown 02/05/2023 1:46 PM CDT 02/05/2023 1:46 PM CDT Kailash Porras MD LAB_1 Performing Organization Address [facility] Co de Phone Number [facility] [address] [place], [place] [phone] [place] [address] documented in this encounter Visit Diagnoses Diagnosis Encounter for supervision of other normal in first trimester documented in this encounter Care Teams Datawarehouse Developer Relationship Specialty Start Date End [place] [address] PCP - General 01/07/23 documented as of this encounter
--- OUTSIDE RECORDS SUMMARY | 2023-10-29 13:58 | XMS_ITS | Clinical Summary ---
Author Name Unknown Organization [facility] Address [address] [place] [address] Care Team Providers Care Patient Financial Specialist Name Role Phone Kailash Porras MD Primary Care Provider Allergies Active Allergy Reactions Criticality Noted Date [...] Mass Index - - Plan of Treatment Health Maintenance Due Date Last Done Comments ADVANCE CARE PLANNING 1989 ANNUAL REVIEW OF HM ORDERS 1989 HEPATITIS B IMMUNIZATION (1 of 3 - 3-dose series) 1989 YEARLY PREVENTIVE VISIT 1989 COVID-19 Vaccine (#1) 06/12/1990 HIV SCREENING 2004 HEPATITIS C SCREENING 12/11/2007 PAP 2010 DTAP/TDAP/TD IMMUNIZATION (1 - Tdap) 2014 INFLUENZA VACCINE (#1) 2023 PHQ-2 (once per calendar year) 2023 HPV IMMUNIZATION Aged Out No longer e ligible based on patient's age to complete this topic IPV IMMUNIZATION Aged Out No longer e ligible based on patient's age to complete this topic MENINGITIS IMMUNIZATION Aged Out No l onger eligible based on patient's age to complete this topic Pneumococcal Vaccine: Pediat rics (0 to 5 Years) and At-Risk Patients (6 to 64 Years) Aged Out No longer eligi ble based on patient's age to complete this topic RSV MONOCLONAL ANTIBODY Aged Out No l onger eligible based on patient's age to complete this topic RSV VACCINE ( & 60+ ) (No Doses Required) Completed Care Teams Patient Financial Specialist Relationship Specialty Start Date End Date Kailash Porras MD PCP - General 02/06/23
--- OUTSIDE RECORDS SUMMARY | 2023-10-29 13:58 | XMS_ITS | Encounter Summary ---
Author Name Unknown Organization [facility] Address [address], [place] [address] Care Team Providers Care Nurses Aide Name Role Phone Needs Pcp, Assignment Primary Care Provider [phone] Reason for Visit * Procedure/Equipment (Routine) - Incomplete Specialty Diagnoses / Procedures Referred By Contac t Referred To Contact Diagnoses History of molar Procedures US OB Limited Single US OB <14 Weeks W EV Single Kailash Porras MD [address] [facility] [address] [place] [address] Referral ID Status Reason Start Date Expiration Date V isits Requested Visits Authorized [id number] Incomplete 01/22/2023 04/22/2024 1 1 Encounter Details Date Type Department Care Team Description 02/05/2023 12:30 PM CDT Ancillary Procedure [place] 1515 Ultrasound [address] [facility] [place], [place] [address] Kailash Porras MD [facility] [address] [place], [place] [address] History of molar Social History Tobacco Use [...] Priority Date/Time Associated Diagnosis Comments US OB LIMITED SINGLE Routine 02/05/2023 12:53 PM CDT History of molar documented in this encounter Results * US OB Limited Single (02/05/2023 12:53 PM CDT) Anatomical Region Laterality Modality Pelvis Ultrasound 02/05/2023 12:2 9 PM CDT Impressions 02/05/2023 2:58 PM CDT CLINICAL HISTORY: ?? COMPARISON: ??01/22/2023 OB LIMITED: TECHNIQUE: ??Transabdominal imaging was performed. FINDINGS: ??A limited follow-up OB ultrasound was performed. Type of Gestation: ??Montes. There is a 1.8 x 1.4 x 0.8 cm hypoechoic collection adjacent to the gestational sac, consistent with a subchorionic hemorrhage. On the prior examination, this measured 1.5 x 0.4 x 0.8 cm. Embryonic/ cardiac activity is identified with heart rate 176 bpm. Other Findings: The right ovary measures 2.0 x 2.5 x 1.9 cm and demonstrate Doppler flow. The left ovary measures 2.1 x 2.9 x 2.0 cm and demonstrate Doppler flow. No adnexal mass is identified. IMPRESSION: 1. Single living intrauterine with a gestational age based on today's ultrasound of 9 weeks and 0 days, corresponding to an EDC of 09/10/2023. The gestational age by the patient's LMP is also 9 weeks and 0 days. 2. Findings consistent with a subchorionic hemorrhage measuring 1.8 x 0.8 x 1.4 cm. Narrative Procedure Note Melita Darling MD - 02/05/2023 IMPRESSION CLINICAL HISTORY: COMPARISON: 01/22/2023 OB LIMITED: TECHNIQUE: Transabdominal imaging was performed. FINDINGS: A limited follow-up OB ultrasound was performed. Type of Gestation: Montes. There is a 1.8 x 1.4 x 0.8 cm hypoechoiccollection adjacent to the gestational sac, consistent with a subchorionichemorrhage. On the prior examination, this measured 1.5 x 0.4 x 0.8 cm. Embryonic/ cardiac activity is identified with heart rate 176 bpm. Other Findings: The right ovary measures 2.0 x 2.5 x 1.9 cm anddemonstrate Doppler flow. The left ovary measures 2.1 x 2.9 x 2.0 cm anddemonstrate Doppler flow. No adnexal mass is identified. IMPRESSION: 1. Single living intrauterine with a gestational age based ontoday's ultrasound of 9 weeks and 0 days, corresponding to an EDC of09/10/2023. The gestational age by the patient's LMP is also 9 weeks and 0days. 2. Findings consistent with a subchorionic hemorrhage measuring 1.8 x 0.8x 1.4 cm. Kailash Porras MD [facility] documented in this encounter Visit Diagnoses Diagnosis History of molar documented in this encounter Care Teams Nurses Aide Relationship Specialty Start Date End Date Needs Pcp, [place] [address] PCP - General 01/07/23 documented as of this encounter
--- OUTSIDE RECORDS SUMMARY | 2023-10-29 13:59 | XMS_ITS | Encounter Summary ---
Author Name Unknown Organization [facility] Address [address] [place] [address] Care Team Providers Care Plant Guide Name Role Phone Unassigned, Provider Primary Care Provider Unarebecca ilana Encounter Details Date Type Department Care Team Description 01/03/2023 Notes/Orders [place] 1515 Obstetrics/Gynecology 15[address] [facility] [place], [place] [address] Kailash Porras MD 1515 [facility] [place] [address] [place], [place] [address] Absent menses (Primary Dx) Social History Tobacco Use Types Packs/Day Years Used Date Smoking Tobacco: Never Assessed Sex and Gender Information Value Date Recorded Sex Assigned at Not on file Gender Identity Not on file Sexual Orientation Not on file documented as of this encounter Plan of Treatment Not on file documented as of this encounter Visit Diagnoses Diagnosis Absent menses- Primary Absence of menstruation documented in this encounter Care Teams Plant Guide Relationship Specialty Start Date End Date Unassigned, Provider [address] [place] [address] PCP - General 02/03/01 01/06/23 documented as of this encounter
--- OUTSIDE RECORDS SUMMARY | 2023-10-29 13:59 | XMS_ITS | Encounter Summary ---
Author Name Unknown Organization [facility] Address [address] [place] [address] Care Team Providers Care Station Cook Name Role Phone Needs Pcp, Assignment Primary Care Provider [phone] Encounter Details Date Type Department Care Team Description 01/07/2023 12:00 PM CDT Lab Visit [facility] 14[address] [facility] [place] [address] History of molar Social History Tobacco Use [...] Procedure Name Priority Date/Time Associated Diagnosis Comments HCG, QUANTITATIVE, SERUM Same Day 01/07/2023 12:06 PM CDT History of molar documented in this encounter Results * (ABNORMAL) HCG, Quantitative, Serum (01/07/2023 12:06 PM CDT) HCG, Quantitative 2,995(H) <=4 mIU/mL 01/07/2023 7:16 PM CDT [facility] Blood Venipuncture / Unknown 01/07/2023 12:06 PM CDT 01/07/2023 12:06 PM CDT Narrative [facility] - 01/07/2023 7:16 PM CDT Expected ranges Negative: <5 mIU/mL Indeterminate: 5-25 mIU/mL Positive: >25 mIU/mL Suggest repeat testing of indeterminate result in 72 hours. Kailash Porras MD LAB_1 [facility] [address] [place] [address], [facility] documented in this encounter Visit Diagnoses Diagnosis History of molar documented in this encounter Care Teams Station Cook Relationship Specialty Start Date End Date Needs Pcp, [place] [address] PCP - General 01/07/23 documented as of this encounter
--- OUTSIDE RECORDS SUMMARY | 2023-10-29 13:59 | XMS_ITS | Encounter Summary ---
Author Name Unknown Organization [facility] Address [address] [place] [address] Care Team Providers Care Sail Repairer Name Role Phone Needs Pcp, Assignment Primary Care Provider [phone] Encounter Details Date Type Department Care Team Description 01/09/2023 8:00 AM CDT Lab Visit [facility] [address] [place] [address] History of molar Social History Tobacco Use [...] Diagnosis Comments HCG, QUANTITATIVE, SERUM Same Day 01/09/2023 8:00 AM CDT History of molar documented in this encounter Results * (ABNORMAL) HCG, Quantitative, Serum (01/09/2023 8:00 AM CDT) HCG, Quantitative 6,589(H) <=4 mIU/mL 01/09/2023 1:15 PM CDT [facility] Blood Venipuncture / Unknown 01/09/2023 8:00 AM CDT 01/09/2023 8:00 AM CDT Narrative [facility] - 01/09/2023 1:15 PM CDT Expected ranges Negative: <5 mIU/mL Indeterminate: 5-25 mIU/mL Positive: >25 mIU/mL Suggest repeat testing of indeterminate result in 72 hours. Kailash Porras MD LAB_1 [facility] [address] documented in this encounter Visit Diagnoses Diagnosis History of molar documented in this encounter Care Teams Sail Repairer Relationship Specialty Start Date End Date Needs Pcp, [place] [address] PCP - General 01/07/23 documented as of this encounter
--- OUTSIDE RECORDS SUMMARY | 2023-10-29 13:59 | XMS_ITS | Encounter Summary ---
Author Name Unknown Organization [facility] Address [address] [place] [address] Care Team Providers Care Crystal Gazer Name Role Phone Needs Pcp, Assignment Primary Care Provider [phone] Reason for Referral * Procedure/Equipment (Routine) - Incomplete Specialty Diagnoses / Procedures Referred By Contac t Referred To Contact Diagnoses History of molar Procedures US OB <14 Weeks W EV Single Kailash Porras MD 1514 [facility] 200 [place] [address] Referral ID Status Reason Start Date Expiration Date V isits Requested Visits Authorized [id number] Incomplete 01/21/2023 04/21/2024 1 1 Reason for Visit * Reason Comments CONSULT Early conc erns Encounter Details Date Type Department Care Team Description 01/07/2023 11:20 AM CDT [facility] [place] [facility] 15[address] [facility] [phone] Kailash Porras MD 1515 [facility] 200 [place], [place] [phone] History of molar (Primary Dx) Social History [...] Sign Reading Time Taken Comments Blood Pressure 97/72 01/07/2023 11:21 AM CDT Pulse - - Temperature - - Respiratory Rate - - Oxygen Saturation - - Inhaled Oxygen Concentration - - Weight 69.1 kg (152 lb 6.4 oz) 01/07/2023 11:21 AM CDT Height - - Body Mass Index - - documented in this encounter Progress Notes * Kailash Porras MD - 01/07/2023 11:20 AM CDT SUBJECTIVE: 32 y.o. , Patient's last menstrual period was 12/04/2022., here with early concerns. She just moved to [place] from [place]. Her current was conceived spontaneously, but she was under the care of an infertility specialist in [place]. She states that she had an hCG level drawn on 01/03, which returned 600. She is not having any significant symptoms. Her main concern is the fact that she had a previous partial molar , and she would like monitoring to make sure that this current is normal. Outpatient Medications Marked as Taking for the 01/07/23 encounter (Office Visit) with Kailash Porras MD Medication Sig Acetylcysteine (NAC OR) MAGNESIUM OR MV-Min-Fe Fum-FA-DHA ( 1 OR) progesterone (PROMETRIUM) 100 MG capsule Insert vaginally. Pyridoxine HCl (B-6 OR) VITAMIN D OR Allergies Allergen Reactions Penicillins Rash OBJECTIVE: Filed Vitals: 01/07/23 1121 BP: 97/72 Weight: 152 lb 6.4 oz (69.1 kg) Physical exam was deferred. ASSESSMENT: Currently with history of a partial molar . PLAN: We will check hCG levels today and in 2 days to make sure that there rising appropriately. I will have her schedule an ultrasound the week of 01/20 to check for viability. She will notify me sooner if she has any problems or questions. documented in this encounter Plan of Treatment Not on file documented as of this encounter Results * US OB <14 [...] sac, likely a small subchorionic hemorrhage/implantation bleed. [place]-rump length measures 1.0 cm, corresponding to 7w1d [...] gestational sac, likely asmall subchorionic hemorrhage/implantation bleed. [place]-rump length measures 1.0 cm, corresponding to 7w1d [...] dermoid. Attention at follow-up. Kailash Porras MD [facility] * (ABNORMAL) HCG, Quantitative, Serum (01/09/2023 8:00 AM CDT) HCG, Quantitative 6,589(H) <=4 mIU/mL 01/09/2023 1:15 PM CDT [facility] Blood Venipuncture / Unknown 01/09/2023 8:00 AM CDT 01/09/2023 8:00 AM CDT [facility] - 01/09/2023 1:15 PM CDT Expected ranges Negative: <5 mIU/mL Indeterminate: 5-25 mIU/mL Positive: >25 mIU/mL Suggest repeat testing of indeterminate result in 72 hours. Kailash Porras MD LAB[facility]1 [facility] [address] [facility] [address] * (ABNORMAL) HCG, Quantitative, Serum (01/07/2023 12:06 PM CDT) HCG, Quantitative 2,995(H) <=4 mIU/mL 01/07/2023 7:16 PM CDT [facility] Blood Venipuncture / Unknown 01/07/2023 12:06 PM CDT 01/07/2023 12:06 PM CDT Narrative [facility] - 01/07/2023 7:16 PM CDT Expected ranges Negative: <5 mIU/mL Indeterminate: 5-25 mIU/mL Positive: >25 mIU/mL Suggest repeat testing of indeterminate result in 72 hours. Kailash Porras MD LAB[facility]1 [facility] [address] [place] [address], [facility] documented in this encounter Visit Diagnoses Diagnosis History of molar - Primary History of molar documented in this encounter Care Teams Crystal Gazer Relationship Specialty Start Date End Date Needs Pcp, [place] [address] PCP - General 01/07/23 documented as of this encounter
--- NOTE | 2023-10-29 17:00 | P.LACCB_ITS ---
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) Female infertility ?N97.9 - Female infertility, unspecified (ICD-10) Delivery Information Delivery type: Vaginal Weeks Gestation: 39.4 Gestational Age: AGA Weight: 3.572 kg Discharge Weight: 3.345 kg Baby's Information Baby's Age at Visit: 7 weeks Baby's Provider or Clinic: [facility] Reason for Consult Reason for Consult: concern for baby coming off and on the breast, concerned baby isn't nursing as long as she used to Past Experience Past Experience: Yes (nursed her older child for a year) Current Frequency of Day Feedings: about every three hours Frequency of Night Feedings: about every 2.5 hours Both Breasts: Yes (during the day) Suck: not aggressive Latch: wide Length of Time: about 15 minutes if she nurses on both sides Goals: to nurse for at least one year Pumping Pumping: Yes (about once/day and uses her Haakaa) Quantity Pumped: 1 - 3 oz total each time Supplementing EMB Supplement: No Formula Supplement: No Baby Elimination Number of Wet Diapers a Day: about every other feeding Number of BM a Day: once/day or every few days Breast/Nipple Condition Breast Information: WNL Maternal Nipple Condition - Left: Common Nipple Maternal Nipple Condition - Right: Common Nipple Sore Nipples: No Onsite Pre-Feed weight: 4.398 kg Post-Feed weight: 4.544 kg Milk Transferred (mL): 146 Pre-Nursing Left Nipple: Within Normal Limits Pre-Nursing Right Nipple: Within Normal Limits Post-Nursing Left Nipple: Within Normal Limits Post-Nursing Right Nipple: Within Normal Limits Assessments/Interventions Assessments/Interventions: Met with mom and this now 7 week old ex- term AGA baby for consult. Mom reports baby has become a little fussier at breast- she's started to pop off and on more frequently and nursing sessions have also become shorter. Mom reports baby is nursing about every three hours during the day and is still nursing frequently overnight, about every 2.5 hours. Mom sometimes offers both sides during the day, but only one side at night. She sometimes pumps to empty after an disability services coordinator feeding and will use her Haakaa on the side she doesn't nurse from when baby doesn't take both sides. She gets between 1 - 3 oz total when she expresses her milk. Baby hasn't been introduced to a bottle as mom doesn't have to return to work and hasn't really been away from her for long periods of time. Breasts WNL- symmetrical with rounded lower quadrants, intramammary distance < 1.5 inches. Nipples are everted and don't flatten or retract on compression, no damage noted. Mom reports she had difficulty maintaining an adequate supply with her first baby and had to use quite a bit of donor milk. States it was a stressful time as she was moving from [place] to [place] after baby was born. She also reports currently having let downs in-between feedings. She states she feels most of her letdowns, but the ones not associated with a feeding are more bothersome (she describes them as sharp). Sometimes she leaks a lot of milk and sometimes nothing. Baby is in the 22nd percentile for weight (her last weight with [facility] was at 2 DOL and she was in the 61st percentile). Per mom she is a little tight on her left side and prefers to turn her head left but has equal ROM when moving her extremities. Mom reports she has a forceful letdown and baby does better if mom takes a little milk off first or if she can recline back a little when nursing. Baby's palate is a little high. Her lower frenulum appears to be WNL as it's easy to flange her upper lip and the gums don't devaughn. Baby doesn't have an aggressive suck on a finger but the tongue easily extends past the gum line. The tongue also has fairly good lateral movement without much canoeing. The lower frenulum wasn't visualized, posterior? Mom latched baby to the right side and the latch was wide, mom was comfortable. She came off after about five minutes and needed to catch her breath a little, but went right back to nursing. A few minutes later when she came off again, mom burped her and said this was when she would normally switch sides. Suggested that she try the right side one more time, using breast compressions to keep baby interested. This helped baby stay nutritively suckling for a few more minutes before coming off again. She was weighed and had transferred 104ml (3.5 oz). Mom offered the left side, but baby wasn't interested. Baby seemed satisfied for about 10 minutes as mom got her dressed but then started fussing, even with a pacifier. Suggested mom offer the right side again and baby nursed about five minutes. When she was weighed a final time she had taken an additional 42 ml for a total of 146 mo (4.9 oz). Reviewed with mom that she has slipped on the growth curve, but if she maintains her weight along the 20th percentile that is WNL. Also reviewed feedings can become shorter as babies get more efficient as they get older, however she may not be getting quite enough at her daytime feedings and that's why she's still waking up so often overnight. Plan. 1. Suggested that mom offer both sides with all daytime feedings, even if that means a 10 - 15 minute break between sides. If she takes more throughout the day, she will probably sleep longer overnight and give mom a better chance at a longer stretch of sleep. 2. Reviewed s/s of reflux and b/c baby doesn't seem to be in pain when she is nursing (even though she pops off and on), she's comfortable sleeping on her back, and she hasn't had any projectile vomiting it's unlikely she has reflux. This can also be reviewed at her 2 month WCC. 3. It's more likely the popping off and on the breast is r/t mom's letdown so encouraged her to keep taking a little milk off before nursing and/or reclining back a little to slow the flow of milk. 4. We discussed the possibility baby has a posterior tongue tie but as long as she's nursing well and maintaining her growth, there isn't an urgent need to have it evaluated. 5. Will f/u with mom in 2 - 3 weeks to see how baby's weight was at her 2 month WCC and if there's been any change to mom's letdown pattern between feedings. 6. Will fax note to PCP. Meds Home Medications and Allergies Home Medications Medication Instructions Recorded Confirmed Type docosahexaenoic acid 200 mg 200 mg PO DAILY PRN 04/23/23 10/22/23 History capsule ( DHA) Saccharomyces boulardii 250 mg 250 mg PO BID 05/21/23 10/22/23 History capsule (Daily Probiotic (S. boulardii)) cholecalciferol (vitamin D3) 25 25 mcg PO QDAY 07/30/23 10/22/23 History mcg (1,000 unit) capsule magnesium 250 mg tablet 250 mg PO QDAY 07/30/23 10/22/23 History Allergies Allergy/AdvReac Type Severity Reaction Status Date / Time Penicillins Allergy Mild Rash Verified 10/22/23 08:47
== END 2023-10-29 13:53 | disposition home or self-care (01) ==
LOC: OB LAC 13:53
PROVIDERS: Visit Provider Advanced Practice Midwife
DX: Z39.1 Encounter for care and examination of lactating mother (principal)
CPT/HCPCS: G0463

== ENCOUNTER 2023-12-31 09:46 | Outpatient (CLI) | payer OTHER, SELFPAY | END 2023-12-31 09:47 | disposition home or self-care (01) | PROVIDERS: Visit Provider Advanced Practice Midwife | DX: Z39.2 Encounter for routine postpartum follow-up (principal) | CPT/HCPCS: 82306; 84443; 84702 ==

== ENCOUNTER 2024-11-24 10:14 | Outpatient (CLI) | payer OTHER, SELFPAY ==
[2024-11-26 02:21] LABS: HPV Source Cervical; HPV, High Risk by TMA Not Detected
[2024-12-07 14:45] LABS: Pap Test Reviewed by Path Done
== END 2024-11-24 10:15 | disposition home or self-care (01) ==
PROVIDERS: Visit Provider Advanced Practice Midwife
DX: Z12.4 Encounter for screening for malignant neoplasm of cervix (principal); Z11.51 Encounter for screening for human papillomavirus (HPV)
CPT/HCPCS: 87624; 87625; 88141; 88142

== ENCOUNTER 2024-11-25 08:48 | Outpatient (CLI) | payer OTHER, SELFPAY | END 2024-11-25 08:49 | disposition home or self-care (01) | LOC: NFLDREF 11-26 14:06 | PROVIDERS: Visit Provider Advanced Practice Midwife | DX: Z13.220 Encounter for screening for lipoid disorders (principal); Z13.1 Encounter for screening for diabetes mellitus; Z13.29 Encounter for screening for other suspected endocrine disorder | CPT/HCPCS: 80061; 82947; 84443 ==